=== PATIENT | male | born 1975 | race American Indian/Alaskan Native ===

== ENCOUNTER 2019-05-13 09:53 | Emergency (ER) | payer OTHER ==
[2019-05-13 10:09] VITALS: BP 172/111
--- NOTE | 2019-05-13 10:49 | Emergency Department Report ---
ED Rash HPI - HPI Chief Complaint: Allergic Reaction Stated Complaint: ALLERGIC REACTION/RT HAND Time Seen by Provider: 05/13/19 10:42 Duration: 1 week Location: Other (face upper torso upper extremities) Rash Symptoms: Yes Facial Swelling, Yes Peeling, Yes Blistering, No Itching, No Tongue/Oral Swelling, No Breathing Difficulties, No Choking Sensation, No Wheezing/Dyspnea, No Fever Severity: moderate Other History: Mr. Landis is a very pleasant 43-year-old male without significant past medical history for the past week has had a diffuse rash on the hands body face. 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 Outside clinic diagnosed with latex allergy. Cream completely resolved with the symptoms. However he still is working around latex. He now has recurrence of the facial rash. He has blistering and irritation. ED Review of Systems ROS: Stated complaint: ALLERGIC REACTION/RT HAND Other details as noted in HPI Constitutional: denies: fever ENT: denies: throat pain Respiratory: denies: shortness of breath Skin: rash, lesions ED Past Medical Hx - Past Medical History Previous Medical History?: No - Surgical History Past Surgical History?: No - Social History Smoking Status: Current Every Day Smoker Substance Use Type: None - Medications Home Medications: Home Medications Medication Instructions Recorded Confirmed Last Taken Type Hydrocortisone 1% [Hydrocortisone 1 applicatio TP TID 7 Days #2 tube 05/13/19 Unknown Rx 1% CREAM] Prednisone [predniSONE 10 mg 10 mg PO .TAPER #1 tab.ds.pk 05/13/19 Unknown Rx (6-Day Pack, 21 Tabs)] Rash Exam - Exam General: Vital signs noted. No distress. Alert and acting appropriately. HEENT: Yes Periorbital Edema, No Conjuctival Injection, No Chemosis, No Perioral Edema, No Tongue Edema, No Uvular Edema, No Compromised Airway, No Drooling Lungs: No Labored Respirations, No Retractions, No Use of Accessory Muscles Skin: Yes Excoriations, Yes Weeping, Yes Tenderness, Yes Erythema, No Other (face: left upper eyelid edema blisters redness, right hand: redness with blisters) ED Course Vital Signs 05/13/19 10:07 Temperature 98.2 F Pulse Rate 85 Respiratory 20 Rate Blood Pressure 172/111 O2 Sat by Pulse 100 Oximetry ED Medical Decision Making - Medical Decision Making Clinical impression contact allergic dermatitis: Prescribe prednisone and hydrocortisone cream Critical care attestation.: If time is entered above; I have spent that time in minutes in the direct care of this critically ill patient, excluding procedure time. ED Disposition Clinical Impression: Allergic contact dermatitis Disposition: TO HOME OR SELFCARE Is pt being admited?: No Does the pt Need Aspirin: No Condition: Stable Instructions: Contact Dermatitis (ED) Prescriptions: Hydrocortisone 1% [Hydrocortisone 1% CREAM] 1 applicatio TP TID 7 Days #2 tube Prednisone [predniSONE 10 mg (6-Day Pack, 21 Tabs)] 10 mg PO .TAPER #1 tab.ds.pk Referrals: NATALEE CERRATO MD [Staff Physician] - 3-5 Days Forms: Work/School Release Form(ED)
== END 2019-05-13 10:59 | disposition home or self-care (01) ==
LOC: ED 09:53
DX: L23.9 Allergic contact dermatitis, unspecified cause (principal); F17.200 Nicotine dependence, unspecified, uncomplicated
CPT/HCPCS: 99282

== ENCOUNTER 2021-07-08 19:24 | Inpatient (IN) | payer OTHER ==
[2021-07-08] MEDS ORDERED: CLOPIDOGREL 300 MG TAB PO ONE (19:40)
[2021-07-08] MEDS ORDERED: HEPARIN 10,000 UNITS/10 ML VIAL IV ONE (19:41)
[2021-07-08] MEDS ORDERED: NITROGLYCERIN DRIP 50 MG/250 ML BOTTLE IV ONE (19:42)
--- NOTE | 2021-07-08 19:49 | Emergency Department Report ---
HPI - General Time Seen by Provider: 07/08/21 19:40 ED Past Medical Hx - Social History Smoking Status: Current Every Day Smoker Substance Use Type: None - Medications Home Medications: Home Medications Medication Instructions Recorded Confirmed Last Taken Type Hydrocortisone 1% [Hydrocortisone 1 applicatio TP TID 7 Days #2 tube 05/13/19 Unknown Rx 1% CREAM] Prednisone [predniSONE 10 mg 10 mg PO .TAPER #1 tab.ds.pk 05/13/19 Unknown Rx (6-Day Pack, 21 Tabs)] ED Review of Systems ROS: Stated complaint: CHEST PAIN Other details as noted in HPI ED Course - Reevaluation(s) Reevaluation #1: 07/08/21 19:44 EKG immediately upon arrival.at 1928 interpreted at 1928 showed a rate of 96, normal. The rhythm is sinus rhythm, normal. There is an intraventricular conduction delay that looks almost like an incomplete right bundle branch block there is also ST segment elevation in leads I and aVL consistent with acute lateral CT there is also ST segment elevation in V5 V6. Bilateral Upper extremity BP's are similar. I spoke with who requested we give the patient 600 mg of Plavix as well as 5000 of heparin and he will take him to the [facility] immediately. I spoke to Dr. Shah who will be the hospitalist admitting the patient. I am also beginning a nitroglycerin drip since the patient is in severe pain. Critical care attestation.: If time is entered above; I have spent that time in minutes in the direct care of this critically ill patient, excluding procedure time. ED Disposition Clinical Impression: Acute lateral myocardial infarction Disposition: 02 [facility] Is pt being admited?: Yes Does the pt Need Aspirin: Yes Condition: Critical
[2021-07-08] MEDS ORDERED: ASPIRIN 81 MG TAB CHEW PO ONE (19:50)
[2021-07-08 19:59] LABS: Basophils % (Auto) 0.3 % (0.0-1.8); Hematocrit 50.7 % (35.5-45.6); Hemoglobin 16.8 gm/dl (11.8-15.2); Lymphocytes # (Auto) 3.2 K/mm3 (1.2-5.4); Lymphocytes % (Auto) 35.5 % (13.4-35.0); Mean Corpuscular HGB Conc 33 % (32-34); Mean Corpuscular Volume 90 fl (84-94); Monocytes # (Auto) 1.1 K/mm3 (0.0-0.8); Monocytes % (Auto) 12.1 % (0.0-7.3); Platelet Count 291 K/mm3 (140-440); Red Blood Count 5.65 M/mm3 (3.65-5.03); Red Cell Distribution Width 13.1 % (13.2-15.2)
[2021-07-08] MEDS ORDERED: ACETAMINOPHEN 325 MG TAB PO PRN (20:00)
[2021-07-08] MEDS ORDERED: oxyCODONE /ACETAMINOPHEN 5-325MG TAB PO PRN (20:00)
[2021-07-08] MEDS ORDERED: MORPHINE 4 MG/1 ML INJ IV PRN (20:00)
[2021-07-08] MEDS ORDERED: MORPHINE 4 MG/1 ML INJ IV ONE (20:01)
[2021-07-08] MEDS ORDERED: ONDANSETRON 4 MG/2 ML INJ IV ONE (20:01)
[2021-07-08] MEDS ORDERED: MORPHINE 4 MG/1 ML INJ ONE (20:02)
--- NOTE | 2021-07-08 20:03 | History and Physical Report ---
History of Present Illness Chief complaint: I am having chest pain History of present illness: 45 YO Male with Obesity, Nicotine Dependence presents to ED for evaluation. Patient reports "I am having chest pain". Patient states that he has experienced a sudden onset of pain in his chest today with persistent and wor sening symptoms over the same timeframe. Patient states that pain is 7/10, constant, substernal, nonradiating, worsened with exertion, relieved with rest, associated with diaphoresis, associated with shortness of breath. Patient transported [facility] via private vehicle for further care and evaluation of the aforementioned symptoms. The patient was seen and evaluated in the emergency department. All lab and imaging studies reviewed. EKG revealed evidence of STEMI, as well as clinical symptoms consistent with unstable angina, as well as diastolic CHF. Patient initiated on heparin drip, as well as antiplatelet therapy. Cardiology team consulted in ED and patient taken urgently to the Director [employer] [facility] for intervention. Patient admitted to ICU and initiated on STEMI protocol. Patient chest pain but denies fever, chills, productive cough, skin rash, recent contact, known exposure to COVID-19. No prior admission for review. No medication listed at time of admission for reconciliation. Advanced care planning conducted in ED. Past History Past Medical History: other (See HPI) Past Surgical History: No surgical history, Other (Reviewed) Social history: single, smoking. denies: alcohol abuse Family history: diabetes ([facility]), hypertension Medications and Allergies Allergies Allergy/AdvReac Type Severity Reaction Status Date / Time No Known Allergies Allergy Unverified 07/08/21 19:46 Home Medications Medication Instructions Recorded Confirmed Last Taken Type Hydrocortisone 1% [Hydrocortisone 1 applicatio TP TID 7 Days #2 tube 05/13/19 Unknown Rx 1% CREAM] Prednisone [predniSONE 10 mg 10 mg PO .TAPER #1 tab.ds.pk 05/13/19 Unknown Rx (6-Day Pack, 21 Tabs)] Active Meds: Active Medications Acetaminophen (Acetaminophen 325 Mg Tab) 650 mg PO Q6H PRN PRN Reason: Pain MILD(1-3)/Fever >100.5/LI Nitroglycerin/Dextrose (Tridil Drip 50mg/250ml) 50 mg in 250 mls @ 3 mls/hr IV TITR ONE; Protocol Stop: 07/12/21 07:01 Last Admin: 07/08/21 20:00 Dose: 10 mcg/min, 3 mls/hr Morphine Sulfate (Morphine 4 Mg/1 Ml Inj) 2 mg IV Q8H PRN PRN Reason: Pain , Severe (7-10) Oxycodone/Acetaminophen (Oxycodone /Acetaminophen 5-325mg Tab) 1 tab PO Q6H PRN PRN Reason: Pain, Moderate (4-6) Sodium Chloride (Sodium Chloride 0.9% 10 Ml Flush Syringe) 10 ml IV BID BELEM Sodium Chloride (Sodium Chloride 0.9% 10 Ml Flush Syringe) 10 ml IV PRN PRN PRN Reason: LINE FLUSH Review of Systems Constitutional: no weight loss, no weight gain, no fever, no chills Ears, nose, mouth and throat: no ear pain, no ear discharge, no decreased hearing, no nasal congestion, no nasal discharge Cardiovascular: chest pain, no orthopnea, no lightheadedness Respiratory: no cough, no cough with sputum, no hemoptysis, no shortness of breath Gastrointestinal: no abdominal pain, no nausea, no diarrhea, no constipation, no change in bowel habits Genitourinary Male: no hematuria, no flank pain, no discharge, no urinary frequency, no urinary hesitancy, no nocturia Rectal: no pain, no incontinence, no bleeding Musculoskeletal: no neck stiffness, no shooting arm pain, no arm numbness/tingling, no shooting leg pain Integumentary: no rash, no redness, no sores, no wounds, no jaundice Neurological: no transient paralysis, no paralysis, no weakness, no numbness, no seizures, no tremors Psychiatric: no anxiety, no change in sleep habits, no insomnia, no hypersomnia, no suicidal ideation, no hallucinations Endocrine: no excessive thirst, no polyuria, no nocturia Hematologic/Lymphatic: no easy bruising, no easy bleeding Allergic/Immunologic: no urticaria, no allergic rhinitis Exam - Constitutional Vitals: Temp Pulse Resp BP Pulse Ox 98.9 F 105 H 19 151/110 100 07/08/21 19:30 07/08/21 19:45 07/08/21 19:45 07/08/21 19:45 07/08/21 19:45 General appearance: Present: severe distress, obese - EENT Eyes: Present: PERRL ENT: hearing intact, clear oral mucosa - Neck Neck: Present: supple, normal ROM - Respiratory Respiratory: bilateral: CTA - Cardiovascular Heart Sounds: Present: S1 & S2. Absent: rub, click - Extremities Extremities: pulses symmetrical, No edema Peripheral Pulses: within normal limits - Abdominal General gastrointestinal: Present: soft, non-tender, non-distended, normal bowel sounds Male genitourinary: Present: normal - Integumentary Integumentary: Present: clear, dry - Musculoskeletal Musculoskeletal: generalized weakness - Psychiatric Psychiatric: appropriate mood/affect, intact judgment & insight, cooperative, agitated - Neurologic Neurologic: CNII-XII intact, moves all extremities Results - Labs CBC & Chem 7: 07/08/21 19:47 07/08/21 19:47 Labs: Abnormal lab results 07/08/21 Range/Units 19:47 RBC 5.65 H (3.65-5.03) M/mm3 Hgb 16.8 H (11.8-15.2) gm/dl Hct 50.7 H (35.5-45.6) % RDW 13.1 L (13.2-15.2) % Lymph % (Auto) 35.5 H (13.4-35.0) % [place] % (Auto) 12.1 H (0.0-7.3) % [place] # (Auto) 1.1 H (0.0-0.8) K/mm3 Assessment and Plan - Patient Problems (1) STEMI (ST elevation myocardial infarction) Current Visit: Yes Status: Acute Plan to address problem: ACS protocol: Serial cardiac enzymes, EKG, therapeutic anticoagulation as per cardiology team. Patient taken urgently to cardiac Director [employer] for surgical intervention, The high probability of a clinically significant, sudden or life threatening det erioration of the [cardiac, pulmonary, renal] system(s) required my full and direct attention, intervention and personal management. The aggregate critical care time was [65] minutes. This time is in addition to time spent performing reported procedures but includes the following: [x] Data Review and interpretation [x] Patient assessment and monitoring of vital signs [x] Documentation [x] Medication orders and management (2) Obesity (BMI 35.0-39.9 without comorbidity) Current Visit: Yes Status: Acute Plan to address problem: Balanced diet, increase physical activity discharge, outpatient pulmonary follow-up for sleep study. (3) Unstable angina Current Visit: Yes Status: Acute Plan to address problem: ACS protocol: Serial cardiac enzymes, EKG, telemetry monitoring, therapeutic anticoagulation administered in the emergency department. Antiplatelet therapy administered in the emergency department. (4) DVT prophylaxis Current Visit: Yes Status: Acute Plan to address problem: SCD bilateral lower extremities while in bed (5) Advance care planning Current Visit: Yes Status: Acute Plan to address problem: Disease education conducted, care plan discussed, diagnoses discussed, prognosis discussed, patient is full code. Patient acknowledges understanding and agreement with care plan, +30 minutes.
[2021-07-08 20:12] LABS: Alanine Aminotransferase 35 units/L (7-56); Albumin 4.6 g/dL (3.9-5); BUN/Creatinine Ratio 9; Blood Urea Nitrogen 8 mg/dL (9-20); Calcium 10.2 mg/dL (8.4-10.2); Hemolysis Index 24
[2021-07-08] MEDS ORDERED: MIDAZOLAM 2 MG/2 ML INJ ONE (20:13)
[2021-07-08] MEDS ORDERED: NITROGLYCERIN SYRINGE 3 ML ONE (20:13)
[2021-07-08] MEDS ORDERED: VERAPAMIL 5 MG/2 ML INJ ONE (20:13)
[2021-07-08] MEDS ORDERED: LIDOCAINE (2%) 20 MG/1 ML VIAL 50 ML MDV INFILTRATI ONE (20:13)
[2021-07-08] MEDS ORDERED: HEPARIN/NS 5000 UNIT/500ML 1,000 ML IR ONE (20:13)
[2021-07-08] MEDS ORDERED: fentaNYL 100 MCG/2 ML INJ ONE (20:13)
[2021-07-08] MEDS ORDERED: SODIUM CHLORIDE 0.9% 1000 ML 1,000 ML ONE (20:14)
--- NOTE | 2021-07-08 20:23 | XRay Report ---
CHEST 1 VIEW 07/08/2021 7:46 PM INDICATION / CLINICAL INFORMATION: Chest Pain. COMPARISON: None available. FINDINGS: SUPPORT DEVICES: None. HEART / MEDIASTINUM: No significant abnormality. LUNGS / PLEURA: No significant pulmonary or pleural abnormality. No pneumothorax. ADDITIONAL FINDINGS: No significant additional findings. IMPRESSION: 1. No acute findings. Signer Name: Saul Orantes MD Signed: 07/08/2021 8:19 PM Workstation Name: [id number]
[2021-07-08] MEDS: HEPARIN 10,000 UNITS/10 ML VIAL ONE ×3 (20:31→20:45)
[2021-07-08] MEDS ORDERED: METOPROLOL TARTRATE 5 MG/5 ML INJ IV ONE (20:36)
[2021-07-08] MEDS ORDERED: HEPARIN/NS 5000 UNIT/500ML 500 ML IR ONE (20:47)
[2021-07-08] MEDS ORDERED: TIROFIBAN/NS 12,500 MCG/250 ML BAG IV ONE (20:50)
[2021-07-08] MEDS ORDERED: SODIUM CHLORIDE 0.9% 1000 ML 1,000 ML IV SCH (21:30)
--- NOTE | 2021-07-08 21:32 | Consultation ---
History of Present Illness Consult date: 07/08/21 Requesting physician: NAHUN BEAVERS Consult reason: chest pain History of present illness: 45-year-old male with morbid obesity chronic back pain smoker history of hypertension hyperlipidemia not on medications. Having chest pain since 3 PM. Thought it was gas. Was midsternal with nausea and vomiting. Radiating to the arm and jaw. 10 out of 10 chest pain. Walked to the emergency room found on EKG to have lateral wall myocardial infarction. Patient was taken emergently to the [facility] Techn[facility] found left main patent LAD patent circumflex patent ramus on a percent RCA patent moderate LV dysfunction with elevated left end-diastolic pressure. Patient has successful PCI of the ramus with a drug-eluting resolute 3.0 x 18 mm postdilated 3 5 x 12. Patient is chest pain-free. Patient denies any fever or chills. Syncope palpitations or melena. Past History Past Medical History: hypertension, hyperlipidemia, other (See HPI) Past Surgical History: No surgical history, Other (Reviewed) Social history: single, smoking. denies: alcohol abuse [facility]: [facility] Medications and Allergies Allergies Allergy/AdvReac Type Severity Reaction Status Date / Time No Known Allergies Allergy Unverified 07/08/21 19:46 Home Medications Medication Instructions Recorded Confirmed Last Taken Type Hydrocortisone 1% [Hydrocortisone 1 applicatio TP TID 7 Days #2 tube 05/13/19 Unknown Rx 1% CREAM] Prednisone [predniSONE 10 mg 10 mg PO .TAPER #1 tab.ds.pk 05/13/19 Unknown Rx (6-Day Pack, 21 Tabs)] Active Meds: Active Medications Acetaminophen (Acetaminophen 325 Mg Tab) 650 mg PO Q6H PRN PRN Reason: Pain MILD(1-3)/Fever >100.5/LI Aspirin (Aspirin 81 Mg Tab Chew) 81 mg PO QDAY BELEM Atorvastatin Calcium (Atorvastatin 40 Mg Tab) 80 mg PO QHS BELEM Clopidogrel Bisulfate (Clopidogrel 75 Mg Tab) 75 mg PO QDAY BELEM Nitroglycerin/Dextrose (Tridil Drip 50mg/250ml) 50 mg in 250 mls @ 3 mls/hr IV TITR ONE; Protocol Stop: 07/12/21 07:01 Last Admin: 07/08/21 20:00 Dose: 10 mcg/min, 3 mls/hr Sodium Chloride (Nacl 0.9% 1000 Ml) 1,000 mls @ 75 mls/hr IV DIRECT BELEM Stop: 07/09/21 05:29 Losartan Potassium (Losartan 25 Mg Tab) 25 mg PO QDAY BELEM Metoprolol Tartrate (Metoprolol Tartrate 50 Mg Tab) 25 mg PO BID BELEM Morphine Sulfate (Morphine 4 Mg/1 Ml Inj) 2 mg IV Q8H PRN PRN Reason: Pain , Severe (7-10) Oxycodone/Acetaminophen (Oxycodone /Acetaminophen 5-325mg Tab) 1 tab PO Q6H PRN PRN Reason: Pain, Moderate (4-6) Sodium Chloride (Sodium Chloride 0.9% 10 Ml Flush Syringe) 10 ml IV BID BELEM Sodium Chloride (Sodium Chloride 0.9% 10 Ml Flush Syringe) 10 ml IV PRN PRN PRN Reason: LINE FLUSH Review of Systems All systems: negative (As per the HPI) Physical Examination Vital Signs Temp Pulse Resp BP Pulse Ox 98.9 F 112 H 26 H 160/110 100 07/08/21 19:30 07/08/21 19:30 07/08/21 19:30 07/08/21 19:30 07/08/21 19:30 General appearance: no acute distress, well-nourished HEENT: Positive: PERRL, Mucus Membranes Moist Neck: Positive: neck supple, trachea midline Cardiac: Positive: Reg Rate and Rhythm, S1/S2, S4. Negative: Audible Murmur Lungs: Positive: clear to auscultation, Normal Breath Sounds Neuro: Positive: Grossly Intact Abdomen: Positive: Soft, Active Bowel Sounds. Negative: Tender, Distended Male genitourinary: Positive: normal Skin: Positive: Clear Incision: Cardiac Cath Site (No hematomas) Musculoskeletal: No Pain, Normal Range of Motion Extremities: Present: normal. Absent: edema Results 07/08/21 19:47 07/08/21 19:47 Cardiac Enzymes 07/08/21 Range/Units 19:47 AST 29 (5-40) units/L CBC 07/08/21 Range/Units 19:47 WBC 9.1 (4.5-11.0) K/mm3 RBC 5.65 H (3.65-5.03) M/mm3 Hgb 16.8 H (11.8-15.2) gm/dl Hct 50.7 H (35.5-45.6) % Plt Count 291 (140-440) K/mm3 Lymph # (Auto) 3.2 (1.2-5.4) K/mm3 [place] # (Auto) 1.1 H (0.0-0.8) K/mm3 Eos # (Auto) 0.0 (0.0-0.4) K/mm3 Baso # (Auto) 0.0 (0.0-0.1) K/mm3 Comprehensive Metabolic Panel 07/08/21 Range/Units 19:47 Sodium 136 L (137-145) mmol/L Potassium 3.5 L (3.6-5.0) mmol/L Chloride 95.9 L (98-107) mmol/L Carbon Dioxide 16 L (22-30) mmol/L BUN 8 L (9-20) mg/dL Creatinine 0.9 (0.8-1.3) mg/dL Glucose 368 H (75-100) mg/dL Calcium 10.2 (8.4-10.2) mg/dL AST 29 (5-40) units/L ALT 35 (7-56) units/L Alkaline Phosphatase 84 (35-129) units/L Total Protein 7.8 (6.3-8.2) g/dL Albumin 4.6 (3.9-5) g/dL - Imaging and Cardiology Cardiac cath: report reviewed (left main patent LAD patent circumflex patent ramus on a percent RCA patent moderate LV dysfunction with elevated left end- diastolic pressure. Patient has successful PCI of the ramus with a drug-eluting resolute 3.0 x 18 mm postdilated 3 5 x 12) EKG interpretations - Telemetry EKG Rhythm: Sinus Rhythm (Normal sinus rhythm acute lateral wall PA) Assessment and Plan 44-year-old male with morbid obesity hypertension hyperlipidemia noncompliant. Had an acute lateral wall PA with successful PCI of the ramus. Patient acute diastolic function and moderate LV dysfunction. Will start patient on aspirin Plavix patient was loaded with 600 mg. Post PCI care DC right femoral sheath when ACT less than 150. Start Lopressor losartan high-dose statin. Discussed about smoking cessation. Patient be transferred to the critical care unit Spent over 31 minutes of critical care time - Patient Problems (1) Acute diastolic (congestive) heart failure Current Visit: Yes Status: Acute (2) Hyperlipemia, mixed Current Visit: Yes Status: Chronic (3) Hypertension Current Visit: Yes Status: Chronic Qualifiers: Hypertension type: primary hypertension Qualified Code(s): I10 - Essential (primary) hypertension (4) Cardiomyopathy Current Visit: Yes Status: Acute Qualifiers: Cardiomyopathy type: ischemic Qualified Code(s): I25.5 - Ischemic cardiomyopathy (5) Obesity (BMI 35.0-39.9 without comorbidity) Current Visit: Yes Status: Chronic (6) STEMI (ST elevation myocardial infarction) Current Visit: Yes Status: Acute Qualifiers: Involved coronary artery: left circumflex coronary artery Qualified Code(s): I21.21 - ST elevation (STEMI) myocardial infarction involving left circumflex coronary artery (7) Acute lateral myocardial infarction Current Visit: No Status: Acute
[2021-07-08] MEDS: METOPROLOL TARTRATE 50 MG TAB PO SCH (22:23)
[2021-07-09] MEDS: MORPHINE 4 MG/1 ML INJ IV PRN ×3 (01:16→09:57)
[2021-07-09 04:17] LABS: Chol/HDL Ratio 6.32 %
[2021-07-09 05:21] LABS: Basophils % (Auto) 0.1 % (0.0-1.8); Hematocrit 50.8 % (35.5-45.6); Hemoglobin 16.7 gm/dl (11.8-15.2); Lymphocytes # (Auto) 1.1 K/mm3 (1.2-5.4); Lymphocytes % (Auto) 9.9 % (13.4-35.0); Mean Corpuscular HGB Conc 33 % (32-34); Mean Corpuscular Volume 92 fl (84-94); Monocytes # (Auto) 0.5 K/mm3 (0.0-0.8); Platelet Count 277 K/mm3 (140-440); Red Blood Count 5.54 M/mm3 (3.65-5.03); Red Cell Distribution Width 13.3 % (13.2-15.2)
[2021-07-09 05:56] LABS: BUN/Creatinine Ratio TNR; Blood Urea Nitrogen TNR mg/dL (9-20); Calcium TNR mg/dL (8.4-10.2); Hemolysis Index TNR
--- NOTE | 2021-07-09 07:52 | Consultation ---
History of Present Illness Consult date: 07/09/21 Requesting physician: MALI ERICKSON Reason for consult: other (Post cath, ICU care) History of present illness: 45-year-old male with morbid obesity chronic back pain smoker history of hypertension hyperlipidemia not on medications, with chest pain- STEMI, lateral wall infarction . Patient was taken emergently to the [facility] found left main patent LAD patent circumflex patent ramus on a percent RCA patent moderate LV dysfunction with elevated left end-diastolic pressure. Patient has successful PCI of the ramus with a drug-eluting resolute 3.0 x 18 mm postdilated 3 5 x 12. Admitted to the ICU for monitoring post procedure. Critical care consult placed to facilitate monitoring and admission to the unit. Past History Past Medical History: hypertension, hyperlipidemia, other (See HPI) Past Surgical History: No surgical history, Other (Reviewed) Social history: single, smoking. denies: alcohol abuse Family history: diabetes (Welcome back), hypertension Medications and Allergies Allergies Allergy/AdvReac Type Severity Reaction Status Date / Time No Known Allergies Allergy Verified 07/09/21 05:11 Home Medications Medication Instructions Recorded Confirmed Last Taken Type No Known Home Medications [No 07/08/21 07/08/21 Unknown History Reported Home Medications] Active Meds: Active Medications Acetaminophen (Acetaminophen 325 Mg Tab) 650 mg PO Q6H PRN PRN Reason: Pain MILD(1-3)/Fever >100.5/LI Aspirin (Aspirin 81 Mg Tab Chew) 81 mg PO QDAY [facility] Atorvastatin Calcium (Atorvastatin 40 Mg Tab) 80 mg PO QHS [facility] Last Admin: 07/08/21 22:23 Dose: 80 mg Clopidogrel Bisulfate (Clopidogrel 75 Mg Tab) 75 mg PO QDAY [facility] Nitroglycerin/Dextrose (Tridil Drip 50mg/250ml) 50 mg in 250 mls @ 3 mls/hr IV TITR ONE; Protocol Stop: 07/12/21 07:01 Last Admin: 07/08/21 20:00 Dose: 10 mcg/min, 3 mls/hr Losartan Potassium (Losartan 25 Mg Tab) 25 mg PO QDAY [facility] Metoprolol Tartrate (Metoprolol Tartrate 50 Mg Tab) 25 mg PO BID [facility] Last Admin: 07/08/21 22:23 Dose: 25 mg Morphine Sulfate (Morphine 4 Mg/1 Ml Inj) 2 mg IV Q4H PRN PRN Reason: Pain , Severe (7-10) Last Admin: 07/09/21 05:29 Dose: 2 mg Oxycodone/Acetaminophen (Oxycodone /Acetaminophen 5-325mg Tab) 1 tab PO Q6H PRN PRN Reason: Pain, Moderate (4-6) Last Admin: 07/08/21 22:23 Dose: 1 tab Sodium Chloride (Sodium Chloride 0.9% 10 Ml Flush Syringe) 10 ml IV BID BELEM Last Admin: 07/09/21 05:01 Dose: Not Given Sodium Chloride (Sodium Chloride 0.9% 10 Ml Flush Syringe) 10 ml IV PRN PRN PRN Reason: LINE FLUSH Review of Systems Constitutional: no weight loss, no weight gain, no fever, no chills, no sweats Cardiovascular: no chest pain, no orthopnea, no palpitations, no edema, no lightheadedness, no shortness of breath Respiratory: no cough, no cough with sputum, no excessive sputum, no hemoptysis, no shortness of breath, no dyspnea on exertion Gastrointestinal: no abdominal pain, no nausea, no vomiting, no diarrhea, no constipation Genitourinary Male: no dysuria, no hematuria, no flank pain, no nocturia Neurological: no head injury, no paralysis, no weakness, no parathesias, no seizures, no syncope Psychiatric: no anxiety, no memory loss, no change in sleep habits, no insomnia, no hypersomnia Physical Examination Vital signs: Vital Signs Temp Pulse Resp BP Pulse Ox 98.9 F 112 H 26 H 160/110 100 07/08/21 19:30 07/08/21 19:30 07/08/21 19:30 07/08/21 19:30 07/08/21 19:30 General appearance: no acute distress, alert, other (Obese) Eyes: non-icteric ENT: oropharynx moist, other (large neck) Neck: supple, no lymphadenopathy, no JVD Effort: normal Ascultation: Bilateral: clear, diminished breath sounds Cardiovascular: regular rate and rhythm, other (S1,S2) Gastrointestinal: normoactive bowel sounds, soft, non-tender Integumentary: normal, other (No groin hematoma) Extremities: no cyanosis, no edema, pulses normal, no ischemia or petechiae Musculoskeletal: no deformities Gait: normal gait normal mental status, non-focal exam, pupils equal and round, motor strength normal and mood appropriate, affect normal Results - Laboratory Findings CBC and BMP: 07/09/21 04:11 07/09/21 10:17 Abnormal lab findings: Abnormal Labs 07/08/21 07/08/21 07/09/21 19:47 19:47 00:00 RBC 5.65 H Hgb 16.8 H Hct 50.7 H RDW 13.1 L Lymph % (Auto) 35.5 H [place] % (Auto) 12.1 H Lymph # (Auto) [place] # (Auto) 1.1 H Seg Neutrophils % Seg Neutrophils # Sodium 136 L Potassium 3.5 L Chloride 95.9 L Carbon Dioxide 16 L BUN 8 L Glucose 368 H POC Glucose Troponin T 2.130 H* D Cholesterol 234 H LDL Cholesterol Direct 164 H HDL Cholesterol 37 L 07/09/21 07/09/21 04:11 05:42 RBC 5.54 H Hgb 16.7 H Hct 50.8 H RDW Lymph % (Auto) 9.9 L [place] % (Auto) Lymph # (Auto) 1.1 L [place] # (Auto) Seg Neutrophils % 85.0 H Seg Neutrophils # 9.1 H Sodium Potassium Chloride Carbon Dioxide BUN Glucose POC Glucose 318 H Troponin T Cholesterol LDL Cholesterol Direct HDL Cholesterol - Diagnostic Findings Chest x-ray: image reviewed (No acute pulmonary infiltrates, no cardiac disease) Assessment and Plan STEMI (ST elevation myocardial infarction) s/p pci with JOSE MIGUEL to [facility] Morbid obesity BMI 39.5 Tobacco use disorder/Nicotine dependence Unstable angina Diabetes mellitus Probable sleep apnea Hypertension Hyperlipidemia -Smoking cessation counselling, nicotine withdrawal precautions -Cardio-protective measures- anti-platelet therapy, beta blockers -Needs outpatient sleep study -weight loss and life style modifications -Blood pressure management -Glycemic control, target blood glucose <180mg/dL -Follow up echocardiogram report -The patient has erythrocytosis- possible nocturnal hypoxia secondary to sleep apnea, possible pulmonary HTN Can transfer telemetry
[2021-07-09] MEDS ORDERED: DEXTROSE 50% IN WATER (25GM) 50 ML SYRINGE IV PRN (09:00)
[2021-07-09] MEDS: METOPROLOL TARTRATE 50 MG TAB PO SCH ×3 (09:41→21:40)
[2021-07-09] MEDS: ASPIRIN 81 MG TAB CHEW PO SCH (09:41)
[2021-07-09] MEDS: LOSARTAN 25 MG TAB PO SCH (09:41)
[2021-07-09] MEDS: CLOPIDOGREL 75 MG TAB PO SCH (09:41)
[2021-07-09 11:37] LABS: BUN/Creatinine Ratio 11; Blood Urea Nitrogen 10 mg/dL (9-20); Calcium 9.2 mg/dL (8.4-10.2); Hemolysis Index 6
[2021-07-09] MEDS: INSULIN LISPRO 100 UNIT/ML SUB-Q SCH ×3 (11:57→21:25)
--- NOTE | 2021-07-09 13:04 | Progress Note ---
<SHIRA SHARP - Last Filed: 07/09/21 16:10> Assessment and Plan Assessment and plan: This is a 45-year-old male with past medical history of HTN, HLD, morbid obesity, chronic back pain, and nicotine dependence admitted for STEMI s/p PCI with JOSE MIGUEL to the [facility]. Hospital Course to Date: 07/09: Remains stable overnight, c/o of chest soreness which patient described as "soreness but not pain. Continue PRN analgesia for pain management. On GDMT therapy per Cardio. Severe hyperglycemia this am, HgbA1c is 13.9, SSI ACHS and basal insulin was initiated. Kayexalate was also administered for hyperkalemia. Continue to trend troponin and electrolytes. Okay to transfer patient to Telemetry per cardio. Assessment and Plan #STEMI (ST elevation myocardial infarction) #Diastolic CHF - Presented with 10/06, constant, substernal, nonradiating, worsened with exer tion, relieved with rest, associated with diaphoresis, associated with shortness of breath - Initial EKG to have lateral wall myocardial infarction - Cardiology on consult, appreciated recommendations - 07/08 s/p emergent cardiac cath- succesfull PCI with JOSE MIGUEL to the [facility] - 2D Echo pending - Troponin remains elevated this am, continue to trend per Cardio - On GDMT therapy per cardio - SCD bilateral lower extremities while in bed - Okay for transfer to Telemetry #Hyperglycemia - Hgb A1c 13.9 - per patient no prior history of DM - SSI ACH and lantus qHs initiated - Education and resources provided on DM - Nutrition also consulted for more DM education #Hyperkelemia #Hypernatremia - Unclear etiology, probably 2/2 to Stemi - Ca wnr, will check mag and phosp - X1 dose of kayexalate - Monitor Na for now since patient VSS and he appear euvolemic - 2D echo pending - Continue to trend BMP - Monitor and replace electrolytes as needed #Nicotine Dependence - Thorough education of smoking cessation, patient verbalized understanding of info given - Smocking cessation resources provided - Nicotine patch Qday #Hypertension #Hyperlipidemia - BP is stable - Continue statin and current antihypertensive regimen - Continue blood pressure monitor per protocol - Maintain SBP less than 160 #Obesity (BMI 35.0-39.9 without comorbidity) - Balanced diet, increase physical activity at discharge - Nutrition consulted - Outpatient pulmonary follow-up for sleep study. #GI/DVT Prophylaxis - PPI- Pepcid - SCD bilateral lower extremities while in bed #Advance Care Planning - Disease education conducted, care plan discussed, diagnoses discussed, prognosis discussed. Patient acknowledges understanding and agreement with care plan The high probability of a clinically significant, sudden or life threatening deterioration of the [multiple] system(s) required my full and direct attention, intervention and personal management. The aggregate critical care time was [60] minutes. This time is in addition to time spent performing reported procedures but includes the following: [x] Data Review and interpretation [x] Patient assessment and monitoring of vital signs [x] Documentation [x] Medication orders and management Disposition Plan: ICU Total Time Spent with Patient (Minutes): 60 History Interval history: Patient seen and examined at the bedside. Fully AAO, on RA, complaining of chest soreness this am, however, not painful as when he came in. Patient cath sites were noted with no s/s of any complications, VSS. Hospitalist Physical - Constitutional Vitals: Temp Pulse Resp BP Pulse Ox 98.2 F 94 H 28 H 138/98 95 07/09/21 08:00 07/09/21 11:59 07/09/21 11:20 07/09/21 11:59 07/09/21 11:20 General appearance: Present: no acute distress, well-nourished, obese - EENT Eyes: Present: PERRL, EOM intact ENT: hearing intact, clear oral mucosa - Neck Neck: Present: normal ROM - Respiratory Respiratory effort: normal Respiratory: bilateral: CTA - Cardiovascular Rhythm: regular Heart Sounds: Present: S1 & S2 - Extremities Extremities: no ischemia, pulses intact, pulses symmetrical Extremity abnormal: edema - Peripheral Assessment Generalized Edema Type: Non-pitting Edema Degree: 1+ Capillary Refill: < 3 seconds Skin Temperature: Warm Peripheral Pulses: within normal limits - Abdominal General gastrointestinal: soft, non-distended, normal bowel sounds - Integumentary Integumentary: Present: clear, warm, dry - Psychiatric Psychiatric: appropriate mood/affect, cooperative - Neurologic Neurologic: CNII-XII intact, moves all extremities - Allied Health Allied health notes reviewed: nursing HEART Score - HEART Score Troponin: Troponin T 3.850 ng/mL (0.00-0.029) H* D 07/09/21 10:17 Results - Labs CBC & Chem 7: 04/12/22 04:11 07/09/21 10:17 Labs: Laboratory Last Values WBC 10.8 K/mm3 (4.5-11.0) 07/09/21 04:11 RBC 5.54 M/mm3 (3.65-5.03) H 07/09/21 04:11 Hgb 16.7 gm/dl (11.8-15.2) H 07/09/21 04:11 Hct 50.8 % (35.5-45.6) H 07/09/21 04:11 MCV 92 fl (84-94) 07/09/21 04:11 MCH 30 pg (28-32) 07/09/21 04:11 MCHC 33 % (32-34) 07/09/21 04:11 RDW 13.3 % (13.2-15.2) 07/09/21 04:11 Plt Count 277 K/mm3 (140-440) 07/09/21 04:11 Lymph % (Auto) 9.9 % (13.4-35.0) L 07/09/21 04:11 [place] % (Auto) 5.0 % (0.0-7.3) 07/09/21 04:11 Eos % (Auto) 0.0 % (0.0-4.3) 07/09/21 04:11 Baso % (Auto) 0.1 % (0.0-1.8) 07/09/21 04:11 Lymph # (Auto) 1.1 K/mm3 (1.2-5.4) L 07/09/21 04:11 [place] # (Auto) 0.5 K/mm3 (0.0-0.8) 07/09/21 04:11 Eos # (Auto) 0.0 K/mm3 (0.0-0.4) 07/09/21 04:11 Baso # (Auto) 0.0 K/mm3 (0.0-0.1) 07/09/21 04:11 Seg Neutrophils % 85.0 % (40.0-70.0) H 07/09/21 04:11 Seg Neutrophils # 9.1 K/mm3 (1.8-7.7) H 07/09/21 04:11 Sodium 131 mmol/L (137-145) L 07/09/21 10:17 Potassium 5.2 mmol/L (3.6-5.0) H D 07/09/21 10:17 Chloride 93.0 mmol/L (98-107) L 07/09/21 10:17 Carbon Dioxide 16 mmol/L (22-30) L 07/09/21 10:17 Anion Gap 27 mmol/L 07/09/21 10:17 BUN 10 mg/dL (9-20) 07/09/21 10:17 Creatinine 0.9 mg/dL (0.8-1.3) 07/09/21 10:17 Estimated GFR > 60 ml/min 07/09/21 10:17 BUN/Creatinine Ratio 11 % 07/09/21 10:17 Glucose 329 mg/dL (75-100) H 07/09/21 10:17 POC Glucose 277 mg/dL (70-105) H 07/09/21 11:03 Hemoglobin A1c 13.9 % (4-6) H 07/09/21 10:17 Calcium 9.2 mg/dL (8.4-10.2) 07/09/21 10:17 Total Bilirubin 0.40 mg/dL (0.1-1.2) 07/08/21 19:47 AST 29 units/L (5-40) 07/08/21 19:47 ALT 35 units/L (7-56) 07/08/21 19:47 Alkaline Phosphatase 84 units/L (35-129) 07/08/21 19:47 Troponin T 3.850 ng/mL (0.00-0.029) H* D 07/09/21 10:17 NT-Pro-B Natriuret Pep 10.00 pg/mL (0-450) 07/08/21 19:47 Total Protein 7.8 g/dL (6.3-8.2) 07/08/21 19:47 Albumin 4.6 g/dL (3.9-5) 07/08/21 19:47 Albumin/Globulin Ratio 1.4 % 07/08/21 19:47 Triglycerides 117 mg/dL (2-149) 07/09/21 00:00 Cholesterol 234 mg/dL (50-199) H 07/09/21 00:00 LDL Cholesterol Direct 164 mg/dL (50-130) H 07/09/21 00:00 HDL Cholesterol 37 mg/dL (40-59) L 07/09/21 00:00 Cholesterol/HDL Ratio 6.32 % 07/09/21 00:00 Swanson/IV: Voiding Method Urinal Active Medications - Current Medications Current Medications: Generic Name Dose Route Start Last Admin Trade Name Freq PRN Reason Stop Dose Admin Acetaminophen 650 mg 07/08/21 20:00 Acetaminophen 325 Mg Tab PO Q6H PRN Pain MILD(1-3)/Fever >100.5/LI Aspirin 81 mg 07/09/21 10:00 07/09/21 09:41 Aspirin 81 Mg Tab Chew PO 81 mg QDAY BELEM Administration Atorvastatin Calcium 80 mg 07/08/21 22:00 07/08/21 22:23 Atorvastatin 40 Mg Tab PO 80 mg QHS [facility] Administration Clopidogrel Bisulfate 75 mg 07/09/21 10:00 07/09/21 09:41 Clopidogrel 75 Mg Tab PO 75 mg QDAY BELEM Administration Dextrose 50 ml 07/09/21 09:00 Dextrose 50% In Water (25gm) 50 Ml Syringe IV Q30MIN PRN Hypoglycemia Protocol Famotidine 20 mg 07/09/21 13:00 Famotidine 20 Mg Tab PO QDAY [facility] Nitroglycerin/Dextrose 50 mg in 250 mls @ 3 mls/hr 07/08/21 19:42 07/08/21 20:00 Tridil Drip 50mg/250ml IV 07/12/21 07:01 10 mcg/min TITR ONE 3 mls/hr Administration Protocol 10 MCG/MIN Insulin Glargine 15 units 07/09/21 22:00 Insulin Glargine 100 Units/Ml SUB-Q QHS [facility] Insulin Human Lispro 0 unit 07/09/21 11:30 07/09/21 11:57 Insulin Lispro 100 Unit/Ml SUB-Q 4 unit ACHS BELEM Administration Protocol Losartan Potassium 25 mg 07/09/21 10:00 07/09/21 09:41 Losartan 25 Mg Tab PO 25 mg QDAY [facility] Administration Metoprolol Tartrate 50 mg 07/09/21 12:00 07/09/21 11:59 Metoprolol Tartrate 50 Mg Tab PO 50 mg BID BELEM Administration Morphine Sulfate 2 mg 07/09/21 01:07 07/09/21 09:57 Morphine 4 Mg/1 Ml Inj IV 2 mg Q4H PRN Administration Pain , Severe (7-10) Oxycodone/Acetaminophen 1 tab 07/08/21 20:00 07/08/21 22:23 Oxycodone /Acetaminophen 5-325mg Tab PO 1 tab Q6H PRN Administration Pain, Moderate (4-6) Sodium Chloride 10 ml 07/08/21 22:00 07/09/21 09:42 Sodium Chloride 0.9% 10 Ml Flush Syringe IV 10 ml BID BELEM Administration Sodium Chloride 10 ml 07/08/21 20:00 Sodium Chloride 0.9% 10 Ml Flush Syringe IV PRN PRN LINE FLUSH Sodium Polystyrene Sulfonate 15 gm 07/09/21 12:38 Sodium Polystyrene 15 Gm/60 Ml Oral Liqd PO 07/09/21 12:39 ONCE ONE <SAMY JOSUE - Last Filed: 07/10/21 07:14> Assessment and Plan Assessment and plan: I saw and evaluated the patient. I agree with the findings and the plan of care as documented in the Nurse Practitioner's~note, with the following corrections and additions. Hospitalist Physical - Constitutional Vitals: Temp Pulse Resp BP Pulse Ox 98.8 F 102 H 18 99/63 97 07/10/21 03:52 07/10/21 03:52 07/10/21 03:52 07/10/21 03:52 07/10/21 03:52 HEART Score - HEART Score Troponin: Troponin T 2.280 ng/mL (0.00-0.029) H* D 07/09/21 23:52 Results - Labs CBC & Chem 7: 07/09/21 04:11 07/09/21 10:17 Labs: Laboratory Last Values WBC 10.8 K/mm3 (4.5-11.0) 07/09/21 04:11 RBC 5.54 M/mm3 (3.65-5.03) H 07/09/21 04:11 Hgb 16.7 gm/dl (11.8-15.2) H 07/09/21 04:11 Hct 50.8 % (35.5-45.6) H 07/09/21 04:11 MCV 92 fl (84-94) 07/09/21 04:11 MCH 30 pg (28-32) 07/09/21 04:11 MCHC 33 % (32-34) 07/09/21 04:11 RDW 13.3 % (13.2-15.2) 07/09/21 04:11 Plt Count 277 K/mm3 (140-440) 07/09/21 04:11 Lymph % (Auto) 9.9 % (13.4-35.0) L 07/09/21 04:11 [place] % (Auto) 5.0 % (0.0-7.3) 07/09/21 04:11 Eos % (Auto) 0.0 % (0.0-4.3) 07/09/21 04:11 Baso % (Auto) 0.1 % (0.0-1.8) 07/09/21 04:11 Lymph # (Auto) 1.1 K/mm3 (1.2-5.4) L 07/09/21 04:11 [place] # (Auto) 0.5 K/mm3 (0.0-0.8) 07/09/21 04:11 Eos # (Auto) 0.0 K/mm3 (0.0-0.4) 07/09/21 04:11 Baso # (Auto) 0.0 K/mm3 (0.0-0.1) 07/09/21 04:11 Seg Neutrophils % 85.0 % (40.0-70.0) H 07/09/21 04:11 Seg Neutrophils # 9.1 K/mm3 (1.8-7.7) H 07/09/21 04:11 Sodium 131 mmol/L (137-145) L 07/09/21 10:17 Potassium 5.2 mmol/L (3.6-5.0) H D 07/09/21 10:17 Chloride 93.0 mmol/L (98-107) L 07/09/21 10:17 Carbon Dioxide 16 mmol/L (22-30) L 07/09/21 10:17 Anion Gap 27 mmol/L 07/09/21 10:17 BUN 10 mg/dL (9-20) 07/09/21 10:17 Creatinine 0.9 mg/dL (0.8-1.3) 07/09/21 10:17 Estimated GFR > 60 ml/min 07/09/21 10:17 BUN/Creatinine Ratio 11 % 07/09/21 10:17 Glucose 329 mg/dL (75-100) H 07/09/21 10:17 POC Glucose 257 mg/dL (70-105) H 07/09/21 21:18 Hemoglobin A1c 13.9 % (4-6) H 07/09/21 10:17 Calcium 9.2 mg/dL (8.4-10.2) 07/09/21 10:17 Total Bilirubin 0.40 mg/dL (0.1-1.2) 07/08/21 19:47 AST 29 units/L (5-40) 07/08/21 19:47 ALT 35 units/L (7-56) 07/08/21 19:47 Alkaline Phosphatase 84 units/L (35-129) 07/08/21 19:47 Troponin T 2.280 ng/mL (0.00-0.029) H* D 07/09/21 23:52 NT-Pro-B Natriuret Pep 10.00 pg/mL (0-450) 07/08/21 19:47 Total Protein 7.8 g/dL (6.3-8.2) 07/08/21 19:47 Albumin 4.6 g/dL (3.9-5) 07/08/21 19:47 Albumin/Globulin Ratio 1.4 % 07/08/21 19:47 Triglycerides 117 mg/dL (2-149) 07/09/21 00:00 Cholesterol 234 mg/dL (50-199) H 07/09/21 00:00 LDL Cholesterol Direct 164 mg/dL (50-130) H 07/09/21 00:00 HDL Cholesterol 37 mg/dL (40-59) L 07/09/21 00:00 Cholesterol/HDL Ratio 6.32 % 07/09/21 00:00 Swanson/IV: Voiding Method Urinal Active Medications - Current Medications Current Medications: Generic Name Dose Route Start Last Admin Trade Name Freq PRN Reason Stop Dose Admin Acetaminophen 650 mg 07/08/21 20:00 Acetaminophen 325 Mg Tab PO Q6H PRN Pain MILD(1-3)/Fever >100.5/LI Aspirin 81 mg 07/09/21 10:00 07/09/21 09:41 Aspirin 81 Mg Tab Chew PO 81 mg QDAY BELEM Administration Atorvastatin Calcium 80 mg 07/08/21 22:00 07/09/21 21:24 Atorvastatin 40 Mg Tab PO 80 mg QHS BE[facility] Administration Clopidogrel Bisulfate 75 mg 07/09/21 10:00 07/09/21 09:41 Clopidogrel 75 Mg Tab PO 75 mg QDAY BELEM Administration Dextrose 50 ml 07/09/21 09:00 Dextrose 50% In Water (25gm) 50 Ml Syringe IV Q30MIN PRN Hypoglycemia Protocol Famotidine 20 mg 07/09/21 14:00 07/09/21 13:51 Famotidine 20 Mg Tab PO 20 mg QDAY BELEM Administration Nitroglycerin/Dextrose 50 mg in 250 mls @ 3 mls/hr 07/08/21 19:42 07/08/21 20:00 Tridil Drip 50mg/250ml IV 07/12/21 07:01 10 mcg/min TITR ONE 3 mls/hr Administration Protocol 10 MCG/MIN Insulin Glargine 15 units 07/09/21 22:00 07/09/21 21:24 Insulin Glargine 100 Units/Ml SUB-Q 15 units QHS [facility]LE[facility] Administration Insulin Human Lispro 0 unit 07/09/21 11:30 07/09/21 21:25 Insulin Lispro 100 Unit/Ml SUB-Q 6 unit ACHS BELEM Administration Protocol Losartan Potassium 25 mg 07/09/21 10:00 07/09/21 09:41 Losartan 25 Mg Tab PO 25 mg QDAY E[facility] Administration Metoprolol Tartrate 50 mg 07/09/21 12:00 07/09/21 21:40 Metoprolol Tartrate 50 Mg Tab PO 50 mg BID BELEM Administration Morphine Sulfate 2 mg 07/09/21 01:07 07/09/21 09:57 Morphine 4 Mg/1 Ml Inj IV 2 mg Q4H PRN Administration Pain , Severe (7-10) Nicotine 21 mg 07/09/21 17:00 07/09/21 16:28 Nicotine 21 Mg/24 Hr Patch TD Not Given QDAY BELEM Oxycodone/Acetaminophen 1 tab 07/08/21 20:00 07/08/21 22:23 Oxycodone /Acetaminophen 5-325mg Tab PO 1 tab Q6H PRN Administration Pain, Moderate (4-6) Sodium Chloride 10 ml 07/08/21 22:00 07/09/21 21:25 Sodium Chloride 0.9% 10 Ml Flush Syringe IV 10 ml BID BELEM Administration Sodium Chloride 10 ml 07/08/21 20:00 Sodium Chloride 0.9% 10 Ml Flush Syringe IV PRN PRN LINE FLUSH Nutrition/Malnutrition Assess - Dietary Evaluation Nutrition/Malnutrition Findings: Nutrition Notes Start: 07/09/21 15:54 Freq: Status: Active Protocol: Document 07/09/21 15:54 ORACIO (Rec: 07/09/21 16:05 ORACIO [id number]) Nutrition Notes Need for Assessment generated from: MD Order,Education Initial or Follow up Brief Note Other Pertinent Diagnosis Chest Pain, CHF, STEMI. Current Diet Cardiac Diet (since B 07/09). 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 Weight Status Obese Subjective/Other Information RD consult for nutrition education. No reports available on Pt's PO intake of meals at the time , will assess at F/U. Pt still in critical condition , not a candidate for Nutrition Education at the time, will assess feasibility on F/U. Percent of energy/protein needs met: Prescribed Cardiac Diet provides for energy/protein needs (2,230 Kcal/85 g) during LOS. Is patient on ventilator? No Is Patient Ambulatory and/or Out of Bed Yes REE-([place]-St. Jeor-ambulatory/OOB) [ 2663.050 [id number]] Kcal/Kg value to use for calculation 16 Approximate Energy Requirements Using 1886 kcal/Kg Calculation Used for Recommendations Kcal/kg Additional Notes Protein: 0.8-1 g/Kg AdjBW; 67- 94 g/day. Fluids: 1 ml/Kcal, or as per MD. Nutrition Intervention Follow-Up By: 07/16/21 Additional Comments Nutrition education will be provided on F/U, if feasible. Continue monitoring food tolerance, %PO intake of meals , and BM.
--- NOTE | 2021-07-09 13:20 | Progress Note ---
Assessment and Plan 45-year-old male with morbid obesity, chronic back pain, smoker, hypertension, hyperlipidemia admitted overnight for STEMI. PCI with JOSE MIGUEL to ramus. Assessment: STEMI- s/p pci with JOSE MIGUEL to Ramus Acute diastolic heart failure Hyperlipidemia Hypertension Cardiomyopathy Obesity Cardiographics: Echo pending Plan: Echo results pending Patient admitted to ICU for STEMI overnight- is status post PCI with JOSE MIGUEL to ramus via right femoral artery. Patient having some mild chest soreness this morning on exam. Tele reveals ST low 100's. Will increase metoprolol to 50 mg p.o. twice daily. Post PCI trop 3.850. Cont to trend troponin x2 sets to ensure they are downtrending Am BMP with quite elevated blood glucose levels. Management per primary GDMT: Aspirin 81 mg p.o. daily, atorvastatin 80 mg p.o. nightly, Plavix 75 mg p.o. daily, losartan 25 mg p.o. daily., Metoprolol 50 mg p.o. twice daily Okay to transfer to telemetry floor today. Patient seen in conjunction with Dr. Sheppard who agrees with the assessment and management of this patient. - Patient Problems (1) Acute diastolic (congestive) heart failure Current Visit: Yes Status: Acute (2) Cardiomyopathy Current Visit: Yes Status: Acute Qualifiers: Cardiomyopathy type: ischemic Qualified Code(s): I25.5 - Ischemic cardiomyopathy (3) STEMI (ST elevation myocardial infarction) Current Visit: Yes Status: Acute Qualifiers: Involved coronary artery: other coronary artery Qualified Code(s): I21.29 - ST elevation (STEMI) myocardial infarction involving other sites (4) Unstable angina Current Visit: Yes Status: Acute (5) Hyperlipemia, mixed Current Visit: Yes Status: Chronic (6) Hypertension Current Visit: Yes Status: Chronic Qualifiers: Hypertension type: primary hypertension Qualified Code(s): I10 - Essential (primary) hypertension (7) Obesity (BMI 35.0-39.9 without comorbidity) Current Visit: Yes Status: Chronic Subjective Date of service: 07/09/21 Principal diagnosis: STEMI Interval history: Patient seen and examined today in the intensive care unit. Patient in no acute distress. Patient states he is having some mild chest soreness this morning, but it is not like the chest pain he was having last night during the STEMI. Right radial puncture site without bleeding or hematoma. Right femoral puncture site pressure dressing removed. Dressing clean dry intact. No bleeding or hematoma noted. DP pulses palpable bilaterally Telemetry: Sinus tach, low 100's Intake & Output 07/08/21 07/09/21 07/09/21 23:59 07:59 15:59 Intake Total 109.75 1000 200 Output Total 1200 450 Balance 109.75 -200 -250 Weight 117.9 kg Objective Vital Signs Temp Pulse Pulse Pulse Pulse Pulse Pulse 07/09/21 11:59 94 H 07/09/21 11:20 96 H 07/09/21 11:10 92 H 07/09/21 11:00 93 H 07/09/21 10:50 99 H 07/09/21 10:40 115 H 07/09/21 10:30 103 H 07/09/21 10:20 107 H 07/09/21 10:16 104 H 07/09/21 10:00 07/09/21 09:41 108 H 07/09/21 09:00 07/09/21 08:02 07/09/21 08:00 98.2 F 109 H 109 H 07/09/21 07:00 07/09/21 05:59 07/09/21 03:12 98.6 F 07/09/21 01:46 07/09/21 00:00 97.8 F 07/08/21 23:51 98 H 98 H 98 H 98 H 07/08/21 21:52 97.6 F 07/08/21 21:51 07/08/21 20:11 112 H 07/08/21 20:06 07/08/21 20:03 112 H 07/08/21 20:01 111 H 07/08/21 19:45 105 H 07/08/21 19:42 100 H 07/08/21 19:30 98.9 F 112 H Resp BP BP Pulse Ox 07/09/21 11:59 138/98 07/09/21 11:20 28 H 131/90 95 07/09/21 11:10 27 H 131/90 96 07/09/21 11:00 26 H 131/90 97 07/09/21 10:50 13 130/83 96 07/09/21 10:40 24 130/83 98 07/09/21 10:30 23 130/83 96 07/09/21 10:20 27 H 95 07/09/21 10:16 24 94 07/09/21 10:00 25 H 140/94 94 07/09/21 09:41 147/97 07/09/21 09:00 23 163/118 97 07/09/21 08:02 97 07/09/21 08:00 28 H 150/100 95 07/09/21 07:00 22 154/110 96 07/09/21 05:59 16 07/09/21 03:12 07/09/21 01:46 16 07/09/21 00:00 07/08/21 23:51 20 97 07/08/21 21:52 07/08/21 21:51 95 07/08/21 20:11 24 154/107 100 07/08/21 20:06 18 07/08/21 20:03 44 H 149/95 100 07/08/21 20:01 25 H 149/95 100 07/08/21 19:45 19 151/110 100 07/08/21 19:42 18 100 07/08/21 19:30 26 H 160/110 100 - Physical Examination General: Appears Well, No Apparent Distress HEENT: Positive: Normocephaly, Mucus Membranes Moist Neck: Positive: trachea midline Cardiac: Positive: S1/S2, Tachycardia Lungs: Positive: Normal Exam Neuro: Positive: Grossly Intact Abdomen: Positive: Soft, Active Bowel Sounds. Negative: Tender, Distended Skin: Positive: Clear Incision: Cardiac Cath Site (No hematomas; R fem dressing, clean, dry, intact ) Musculoskeletal: No Pain, Normal Range of Motion Extremities: Present: normal. Absent: edema - Labs and Meds Cardiac Enzymes 07/08/21 Range/Units 19:47 AST 29 (5-40) units/L Lipids 07/09/21 Range/Units 00:00 Triglycerides 117 (2-149) mg/dL Cholesterol 234 H (50-199) mg/dL HDL Cholesterol 37 L (40-59) mg/dL Cholesterol/HDL Ratio 6.32 % CBC 07/08/21 07/09/21 Range/Units 19:47 04:11 WBC 9.1 10.8 (4.5-11.0) K/mm3 RBC 5.65 H 5.54 H (3.65-5.03) M/mm3 Hgb 16.8 H 16.7 H (11.8-15.2) gm/dl Hct 50.7 H 50.8 H (35.5-45.6) % Plt Count 291 277 (140-440) K/mm3 Lymph # (Auto) 3.2 1.1 L (1.2-5.4) K/mm3 [place] # (Auto) 1.1 H 0.5 (0.0-0.8) K/mm3 Eos # (Auto) 0.0 0.0 (0.0-0.4) K/mm3 Baso # (Auto) 0.0 0.0 (0.0-0.1) K/mm3 Comprehensive Metabolic Panel 07/08/21 07/09/21 07/09/21 Range/Units 19:47 04:11 10:17 Sodium 136 L TNR 131 L (137-145) mmol/L Potassium 3.5 L TNR 5.2 H D (3.6-5.0) mmol/L Chloride 95.9 L TNR 93.0 L (98-107) mmol/L Carbon Dioxide 16 L TNR 16 L (22-30) mmol/L BUN 8 L TNR 10 (9-20) mg/dL Creatinine 0.9 TNR 0.9 (0.8-1.3) mg/dL Glucose 368 H TNR 329 H (75-100) mg/dL Calcium 10.2 TNR 9.2 (8.4-10.2) mg/dL AST 29 (5-40) units/L ALT 35 (7-56) units/L Alkaline Phosphatase 84 (35-129) units/L Total Protein 7.8 (6.3-8.2) g/dL Albumin 4.6 (3.9-5) g/dL - Imaging and Cardiology Echo: pending Cardiac cath: report reviewed (left main patent LAD patent circumflex patent ramus on a percent RCA patent moderate LV dysfunction with elevated left end-diastolic pressure. Patient has successful PCI of the ramus with a drug- eluting resolute 3.0 x 18 mm postdilated 3 5 x 12) - Telemetry EKG Rhythm: Sinus Tachycardia Myocardial infarction: lateral [place] (acute or rece - Allied health notes Allied health notes reviewed: nursing
[2021-07-09] MEDS: FAMOTIDINE 20 MG TAB PO SCH (13:51)
[2021-07-09] MEDS ORDERED: SODIUM POLYSTYRENE 15 GM/60 ML ORAL LIQD PO ONE (14:00)
[2021-07-09] MEDS: NICOTINE 21 MG/24 HR PATCH TD SCH (16:28)
[2021-07-09] MEDS: INSULIN GLARGINE 100 UNITS/ML SUB-Q SCH (21:24)
[2021-07-10 07:27] LABS: Hematocrit 53.6 % (35.5-45.6); Hemoglobin 17.7 gm/dl (11.8-15.2); Mean Corpuscular HGB Conc 33 % (32-34); Mean Corpuscular Volume 91 fl (84-94); Platelet Count 264 K/mm3 (140-440); Red Blood Count 5.91 M/mm3 (3.65-5.03)
--- NOTE | 2021-07-10 07:32 | Cardiac Catherization Report ---
DATE OF SERVICE: 07/08/2021 LEFT HEART CATHETERIZATION, PERCUTANEOUS CORONARY INTERVENTION REPORT, INTRAVASCULAR ULTRASOUND REPORT, AND ASPIRATION ATHERECTOMY REPORT CLINICAL INFORMATION: This is a 45-year-old -[place] gentleman, morbidly obese, smoker, hypertension, hyperlipidemia,, who presents with chest pain for several hours. EKG shows acute posterior wall NC and the patient was brought emergently to the assistant laboratory director. The patient was done with moderate sedation started at 2038 hours, finished at 2108 hours, which is 30 minutes of moderate sedation. DESCRIPTION OF PROCEDURE: The patient initially approached via the right radial artery to gain access, but had a recurrent radial loop. Unable to continue, so had to use the right common femoral artery, sterile technique and local anesthesia. A 6-Urdu groin sheath inserted. LV gram shows moderate LV dysfunction with lateral wall hypokinesis, EF around 30-35%, LVEDP of 35-40 mmHg. LV is 187, aortic is 188/101. No gradient across the aortic valve on pullback. RCA engaged with JR4 catheter, it is a large caliber vessel, is patent. PDA, PLV small to medium caliber and patent. Left system engaged with an EBU 3.5 catheter. Left main is large and patent, trifurcates into large LAD that is patent. Diagonal 1 medium caliber and was patent. Ramus is a large caliber vessel, 100% proximal. Circumflex is patent. OM1 is patent. So, percutaneous intervention of the ramus was performed as the culprit lesion. Adequate ACT was given. Aggrastat was given. The patient was preloaded with Plavix, engaged LCA with EBU 3.5 guide catheter crossed distal ramus with a short Runthrough wire. Balloon with a 2.5 x 12 balloon x 2 inflations, restoring MARCY 2 flow from MARCY 0 flow. The patient had multiple branches in that ramus vessel. 1. Using Ossian catheter for aspiration atherectomy x 2 passes. 2. Intravascular ultrasound showed distal reference vessel 3.0 x 3.2 approximately 3.5. 3. Stented the proximal mid ramus with a drug-eluting Resolute 3.0 x 18 mm, inflated at 15 atmospheres. 4. Postdilated the proximal mid portion of the stent with a 3.5 x 12 balloon at 15 atmospheres. 5. Excellent angiographic result, MARCY 3 flow. Side branch was still patent in the ramus and distal upper and lower branches were still patent. No dissection or perforation noted. I removed coronary wire, multiple angiograms excellent angiographic result, good stent apposition and expansion noted. No dissection noted. 6. A 6-Urdu guiding catheter removed over a guidewire. A 6-Urdu groin sheath sewn in. No hematoma, no bleeding. SUMMARY: 1. Successful percutaneous coronary intervention of the ramus with multiple branches in the proximal midsection with a drug-eluting Resolute 3.0 x 22, postdilated the proximal mid portion of the stent with 3.5 x 12 at 15 atmospheres. 2. Left main patent, LAD patent, circ patent. OM1 patent, RCA patent with moderate left ventricular dysfunction, EF 30% with lateral wall hypokinesis with elevated left end-diastolic pressure. The patient will continue aspirin and Plavix post-PCI care with sheath removal and ACT is less than 150. Discussed this with the patient and the patient's family in detail. TID: [id number] RECEIPT: [id number] EMMANUEL/GINA/LILI ANDINO
[2021-07-10 07:43] LABS: BUN/Creatinine Ratio 15; Blood Urea Nitrogen 12 mg/dL (9-20); Calcium 8.5 mg/dL (8.4-10.2); Hemolysis Index 24
[2021-07-10] MEDS: INSULIN LISPRO 100 UNIT/ML SUB-Q SCH ×5 (08:59→21:52)
[2021-07-10] MEDS: CLOPIDOGREL 75 MG TAB PO SCH (09:07)
[2021-07-10] MEDS: LOSARTAN 25 MG TAB PO SCH (09:07)
[2021-07-10] MEDS: ASPIRIN 81 MG TAB CHEW PO SCH (09:08)
[2021-07-10] MEDS: NICOTINE 21 MG/24 HR PATCH TD SCH ×2 (09:08→09:18)
[2021-07-10] MEDS: FAMOTIDINE 20 MG TAB PO SCH (09:10)
[2021-07-10] MEDS: METOPROLOL TARTRATE 50 MG TAB PO SCH ×2 (09:10→21:58)
--- NOTE | 2021-07-10 14:41 | XRay Report ---
CHEST 1 VIEW INDICATION: follow up after PCI. COMPARISON: 07/08/2021 FINDINGS: Support devices: None. Heart: Within normal limits. Lungs/Pleura: No acute air space or interstitial disease. No pleural abnormality or pneumothorax. Additional findings: None. IMPRESSION: No acute findings. Signer Name: Brayden Early Jr, MD Signed: 07/10/2021 2:36 PM Workstation Name: [id number]
--- NOTE | 2021-07-10 14:51 | Progress Note ---
Assessment and Plan 45 YO Male with Obesity, Nicotine Dependence presents to ED with complaint of chest pain and shortness of breath. Patient states that he has experienced a sudden onset of pain in his chest today with persistent and worsening symptoms over the same timeframe. Patient states that pain is 7/10, constant, substernal, nonradiating, worsened with exertion, relieved with rest, associated with diaphoresis, associated with shortness of breath. Patient transported [facility] via private vehicle for further care and evaluation of the aforementioned symptoms. EKG revealed evidence of STEMI, as well as clinical symptoms consistent with unstable angina, as well as diastolic CHF. Patient initiated on heparin drip, as well as antiplatelet therapy. Cardiology team consulted in ED and patient taken urgently to the [facility] [employer] [facility] for intervention. Patient admitted to ICU and initiated on STEMI protocol. Patient chest pain but denies fever, chills, productive cough, skin rash, recent contact, known exposure to COVID-19. Patient has history of smoking 2 to 3 cigaretts a day x 25 years. Counseled to stop smoking. 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 Patient alert, awake. Says feeling better than he came in. Denies chest pain, shortness of breath or cough at this time. Patient resting on room air. O2 saturation 100% Patient afebrile. No leukocytosis. Blood pressure 101/63, Pulse 91, Respirations 18. Chest xray 07/10/21 reported No acute findings. Patient morbidly Obese, complaining loud snoring. Patient presently on Plavix, aspirin, famotidine and Nicotine patch. Recommend PFTs as out patient. - Patient Problems (1) Acute diastolic (congestive) heart failure Current Visit: Yes Status: Acute Plan to address problem: Management as per cardiology. (2) Cardiomyopathy Current Visit: Yes Status: Acute Qualifiers: Cardiomyopathy type: ischemic Qualified Code(s): I25.5 - Ischemic cardiomyopathy Plan to address problem: Management as per cardiology. (3) STEMI (ST elevation myocardial infarction) Current Visit: Yes Status: Acute Qualifiers: Involved coronary artery: other coronary artery Qualified Code(s): I21.29 - ST elevation (STEMI) myocardial infarction involving other sites Plan to address problem: Management as per cardiology. (4) Hyperlipemia, mixed Current Visit: Yes Status: Chronic Plan to address problem: Management as per primary care. (5) Hypertension Current Visit: Yes Status: Chronic Qualifiers: Hypertension type: primary hypertension Qualified Code(s): I10 - Essential (primary) hypertension Plan to address problem: Management as per primary care. (6) Obesity (BMI 35.0-39.9 without comorbidity) Current Visit: Yes Status: Chronic Plan to address problem: Recommend to loose weight. Recommend sleep study as out patient. Subjective Date of service: 07/10/21 Principal diagnosis: STEMI Interval history: 45 YO Male with Obesity, Nicotine Dependence presents to ED with complaint of chest pain and shortness of breath. Patient states that he has experienced a sudden onset of pain in his chest today with persistent and worsening symptoms over the same timeframe. Patient states that pain is 7/10, constant, substernal, nonradiating, worsened with exertion, relieved with rest, associated with diaphoresis, associated with shortness of breath. Patient transported [facility] via private vehicle for further care and evaluation of the aforementioned symptoms. EKG revealed evidence of STEMI, as well as clinical symptoms consistent with unstable angina, as well as diastolic CHF. Patient initiated on heparin drip, as well as antiplatelet therapy. Cardiology team consulted in ED and patient taken urgently to the [facility] [employer] [facility] for intervention. Patient admitted to ICU and initiated on STEMI protocol. Patient chest pain but denies fever, chills, productive cough, skin rash, recent contact, known exposure to COVID-19. Patient has history of smoking 2 to 3 cigaretts a day x 25 years. Counseled to stop smoking. 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 Patient alert, awake. Says feeling better than he came in. Denies chest pain, shortness of breath or cough at this time. Patient resting on room air. O2 saturation 100% Patient afebrile. No leukocytosis. Blood pressure 101/63, Pulse 91, Respirations 18. Chest xray 07/10/21 reported No acute findings. Patient morbidly Obese, complaining loud snoring. Patient presently on Plavix, aspirin, famotidine and Nicotine patch. Recommend PFTs as out patient. Objective Vital Signs - 12hr 07/10/21 07/10/21 07/10/21 03:52 07:20 08:00 Temperature 98.8 F 98.7 F Pulse Rate 102 H 109 H 99 H Respiratory 18 18 Rate Blood Pressure 99/63 120/78 O2 Sat by Pulse 97 97 Oximetry 07/10/21 07/10/21 07/10/21 08:02 09:07 09:10 Temperature Pulse Rate 102 H 102 H Respiratory Rate Blood Pressure 112/78 112/78 O2 Sat by Pulse 99 Oximetry 07/10/21 07/10/21 07/10/21 10:09 12:00 12:21 Temperature 97.4 F L Pulse Rate 95 H Respiratory 20 Rate Blood Pressure 99/66 O2 Sat by Pulse 98 Oximetry Constitutional: no acute distress, alert, other (Morbidly Obese.) Eyes: non-icteric ENT: oropharynx moist, other (large neck) Neck: supple, no lymphadenopathy, no JVD Effort: normal Ascultation: Bilateral: diminished breath sounds Cardiovascular: regular rate and rhythm, other (S1,S2) Gastrointestinal: normoactive bowel sounds, soft, non-tender Integumentary: normal, other (No groin hematoma) Extremities: no cyanosis, no edema, pulses normal, no ischemia or petechiae Neurologic: normal mental status, non-focal exam, pupils equal and round, CN II- XII normal, motor strength normal and Psychiatric: mood appropriate, affect normal CBC and BMP: 07/11/21 10:18 07/11/21 10:18 Abnormal lab findings: Abnormal Labs 07/08/21 07/08/21 07/09/21 19:47 19:47 00:00 RBC 5.65 H Hgb 16.8 H Hct 50.7 H RDW 13.1 L Lymph % (Auto) 35.5 H [place] % (Auto) 12.1 H Lymph # (Auto) [place] # (Auto) 1.1 H Seg Neutrophils % Seg Neutrophils # Sodium 136 L Potassium 3.5 L Chloride 95.9 L Carbon Dioxide 16 L BUN 8 L Glucose 368 H POC Glucose Hemoglobin A1c Troponin T 2.130 H* D Cholesterol 234 H LDL Cholesterol Direct 164 H HDL Cholesterol 37 L 07/09/21 07/09/21 07/09/21 04:11 05:42 10:17 RBC 5.54 H Hgb 16.7 H Hct 50.8 H RDW Lymph % (Auto) 9.9 L [place] % (Auto) Lymph # (Auto) 1.1 L [place] # (Auto) Seg Neutrophils % 85.0 H Seg Neutrophils # 9.1 H Sodium 131 L Potassium 5.2 H D Chloride 93.0 L Carbon Dioxide 16 L BUN Glucose 329 H POC Glucose 318 H Hemoglobin A1c Troponin T 3.850 H* D Cholesterol LDL Cholesterol Direct HDL Cholesterol 07/09/21 07/09/21 07/09/21 10:17 11:03 16:01 RBC Hgb Hct RDW Lymph % (Auto) [place] % (Auto) Lymph # (Auto) [place] # (Auto) Seg Neutrophils % Seg Neutrophils # Sodium Potassium Chloride Carbon Dioxide BUN Glucose POC Glucose 277 H 285 H Hemoglobin A1c 13.9 H Troponin T Cholesterol LDL Cholesterol Direct HDL Cholesterol 07/09/21 07/09/21 07/10/21 21:18 23:52 07:06 RBC 5.91 H Hgb 17.7 H Hct 53.6 H RDW 13.0 L Lymph % (Auto) [place] % (Auto) Lymph # (Auto) [place] # (Auto) Seg Neutrophils % Seg Neutrophils # Sodium Potassium Chloride Carbon Dioxide BUN Glucose POC Glucose 257 H Hemoglobin A1c Troponin T 2.280 H* D Cholesterol LDL Cholesterol Direct HDL Cholesterol 07/10/21 07/10/21 07/10/21 07:06 07:18 08:18 RBC Hgb Hct RDW Lymph % (Auto) [place] % (Auto) Lymph # (Auto) [place] # (Auto) Seg Neutrophils % Seg Neutrophils # Sodium 128 L Potassium Chloride 91.2 L Carbon Dioxide 16 L BUN Glucose 257 H POC Glucose 265 H 261 H Hemoglobin A1c Troponin T Cholesterol LDL Cholesterol Direct HDL Cholesterol 07/10/21 10:48 RBC Hgb Hct RDW Lymph % (Auto) [place] % (Auto) Lymph # (Auto) [place] # (Auto) Seg Neutrophils % Seg Neutrophils # Sodium Potassium Chloride Carbon Dioxide BUN Glucose POC Glucose 323 H Hemoglobin A1c Troponin T Cholesterol LDL Cholesterol Direct HDL Cholesterol Chest x-ray: report reviewed, image reviewed Additional Studies: CHEST 1 VIEW 07/10/21 INDICATION: follow up after PCI. COMPARISON: 07/08/2021 FINDINGS: Support devices: None. Heart: Within normal limits. Lungs/Pleura: No acute air space or interstitial disease. No pleural abnormality or pneumothorax. Additional findings: None. IMPRESSION: No acute findings. Allied health notes reviewed: nursing
--- NOTE | 2021-07-10 16:40 | Progress Note ---
Assessment and Plan 45-year-old male with morbid obesity, chronic back pain, smoker, hypertension, hyperlipidemia admitted overnight for STEMI. PCI with JOSE MIGUEL to ramus. STEMI- s/p pci with JOSE MIGUEL to Ramus Hyperlipidemia Hypertension Cardiomyopathy Obesity Cardiac cath 07/08/2021- left main patent LAD patent circumflex patent ramus on a percent RCA patent moderate LV dysfunction with elevated left end-diastolic pressure. Patient has successful PCI of the ramus with a drug-eluting resolute 3.0 x 18 mm postdilated 3 5 x 12 Echo 07/08/2021-EF 20 to 25%. Mild diastolic dysfunction present impaired relaxation pattern. Right ventricle systolic function is mildly reduced Plan: Echo results noted above Patient transferred to telemetry Patient reports being chest pain-free Patient sinus 90s with episodes of sinus tach into the 130s. Unclear as to why patient is having episodes of sinus tach patient may possibly be dehydrated with will initiate gentle IVF with half-normal saline 50 cc/ hour. Post PCI trop 3.850 troponins downtrending 2.28 BMP with quite elevated blood glucose levels. Management per primary GDMT: Aspirin 81 mg p.o. daily, atorvastatin 80 mg p.o. nightly, Plavix 75 mg p.o. daily, losartan 25 mg p.o. daily., Metoprolol 50 mg p.o. twice daily Repeat chest x-ray shows no acute findings Patient seen in conjunction with Dr. Sheppard who agrees with the assessment and management of this patient - Patient Problems (1) Cardiomyopathy Current Visit: Yes Status: Acute Qualifiers: Cardiomyopathy type: ischemic Qualified Code(s): I25.5 - Ischemic cardiomyopathy (2) STEMI (ST elevation myocardial infarction) Current Visit: Yes Status: Acute Qualifiers: Involved coronary artery: other coronary artery Qualified Code(s): I21.29 - ST elevation (STEMI) myocardial infarction involving other sites (3) Hyperlipemia, mixed Current Visit: Yes Status: Chronic (4) Hypertension Current Visit: Yes Status: Chronic Qualifiers: Hypertension type: primary hypertension Qualified Code(s): I10 - Essential (primary) hypertension (5) Obesity (BMI 35.0-39.9 without comorbidity) Current Visit: Yes Status: Chronic Subjective Date of service: 07/10/21 Principal diagnosis: STEMI Interval history: Patient resting in bed in no acute distress. Patient reports no longer having chest soreness Patient sinus 90s with 2 episodes of sinus tach into the 130s overnight Objective Vital Signs Temp Pulse Pulse Resp BP Pulse Ox 07/10/21 12:21 97.4 F L 20 99/66 07/10/21 12:00 95 H 07/10/21 10:09 98 07/10/21 09:10 102 H 112/78 07/10/21 09:07 102 H 112/78 07/10/21 08:02 99 07/10/21 08:00 99 H 07/10/21 07:20 98.7 F 109 H 18 120/78 97 07/10/21 03:52 98.8 F 102 H 18 99/63 97 07/10/21 02:22 96 H 07/10/21 00:12 98.0 F 84 19 106/67 97 07/09/21 22:34 85 07/09/21 22:14 98.1 F 86 19 97/59 94 07/09/21 21:31 104 H 20 130/94 98 07/09/21 21:21 106 H 14 130/94 97 07/09/21 21:11 102 H 29 H 130/94 98 07/09/21 21:00 97 H 18 130/94 98 07/09/21 20:51 109 H 12 113/77 98 07/09/21 20:41 107 H 21 113/77 99 07/09/21 20:30 97 H 9 L 113/77 07/09/21 20:21 107 H 22 124/78 96 07/09/21 20:11 98 H 25 H 124/78 97 07/09/21 20:00 98.7 F 90 94 H 28 H 124/78 98 07/09/21 19:51 112 H 15 130/92 96 07/09/21 19:41 98 H 12 130/92 97 07/09/21 19:40 97 07/09/21 19:30 94 H 24 130/92 98 07/09/21 19:21 91 H 25 H 121/82 99 07/09/21 19:11 93 H 19 121/82 98 07/09/21 19:00 92 H 27 H 121/82 96 07/09/21 18:51 93 H 27 H 120/82 98 07/09/21 18:41 91 H 28 H 120/82 97 07/09/21 18:30 90 27 H 120/82 96 07/09/21 18:21 101 H 14 136/90 99 07/09/21 18:11 100 H 21 136/90 99 07/09/21 18:01 106 H 12 138/96 100 07/09/21 17:51 101 H 17 138/96 99 07/09/21 17:40 91 H 26 H 157/104 99 07/09/21 17:30 97 H 17 157/104 99 07/09/21 17:20 104 H 14 143/94 96 07/09/21 17:10 100 H 29 H 143/94 97 07/09/21 17:00 96 H 27 H 143/94 97 07/09/21 16:50 97 H 22 124/100 97 07/09/21 16:40 99 H 22 124/100 99 - Physical Examination General: Appears Well, No Apparent Distress HEENT: Positive: Normocephaly, Mucus Membranes Moist Neck: Positive: trachea midline Cardiac: Positive: Reg Rate and Rhythm Lungs: Positive: Normal Breath Sounds Neuro: Positive: Grossly Intact Abdomen: Positive: Soft, Active Bowel Sounds. Negative: Tender, Distended Skin: Positive: Clear Incision: Cardiac Cath Site (No hematomas; R fem dressing, clean, dry, intact ) Musculoskeletal: No Pain, Normal Range of Motion Extremities: Present: normal. Absent: edema - Labs and Meds CBC 07/10/21 Range/Units 07:06 WBC 10.7 (4.5-11.0) K/mm3 RBC 5.91 H (3.65-5.03) M/mm3 Hgb 17.7 H (11.8-15.2) gm/dl Hct 53.6 H (35.5-45.6) % Plt Count 264 (140-440) K/mm3 Comprehensive Metabolic Panel 07/10/21 Range/Units 07:06 Sodium 128 L (137-145) mmol/L Potassium 4.3 (3.6-5.0) mmol/L Chloride 91.2 L (98-107) mmol/L Carbon Dioxide 16 L (22-30) mmol/L BUN 12 (9-20) mg/dL Creatinine 0.8 (0.8-1.3) mg/dL Glucose 257 H (75-100) mg/dL Calcium 8.5 (8.4-10.2) mg/dL - Imaging and Cardiology Echo: report reviewed Cardiac cath: report reviewed (left main patent LAD patent circumflex patent ramus on a percent RCA patent moderate LV dysfunction with elevated left end- diastolic pressure. Patient has successful PCI of the ramus with a drug-eluting resolute 3.0 x 18 mm postdilated 3 5 x 12) - Telemetry EKG Rhythm: Sinus Rhythm - EKG Sinus rhythms and dysrhythmias: sinus rhythm Myocardial infarction: lateral [place] (acute or rece - Allied health notes Allied health notes reviewed: nursing
--- NOTE | 2021-07-10 17:11 | Progress Note ---
Assessment and Plan Assessment and plan: This is a 45-year-old male with past medical history of HTN, HLD, morbid obesity, chronic back pain, and nicotine dependence admitted for STEMI s/p PCI with JOSE MIGUEL to the Ramus. Hospital Course to Date: 07/09: Remains stable overnight, c/o of chest soreness which patient described as "soreness but not pain. Continue PRN analgesia for pain management. On GDMT therapy per Cardio. Severe hyperglycemia this am, HgbA1c is 13.9, SSI ACHS and basal insulin was initiated. Kayexalate was also administered for hyperkalemia. Continue to trend troponin and electrolytes. Okay to transfer patient to Telemetry per cardio. Assessment and Plan #STEMI (ST elevation myocardial infarction) #Diastolic CHF - Presented with 10/06, constant, substernal, nonradiating, worsened with exertion, relieved with rest, associated with diaphoresis, associated with shortness of breath - Initial EKG to have lateral wall myocardial infarction - Cardiology on consult, appreciated recommendations - 07/08 s/p emergent cardiac cath- succesfull PCI with JOSE MIGUEL to the Ramus - Cardiac cath 07/08/2021- left main patent LAD patent circumflex patent ramus on a percent RCA patent moderate LV dysfunction with elevated left end-diastolic pressure. Patient has successful PCI of the ramus with a drug-eluting resolute 3.0 x 18 mm postdilated 3 5 x 12 Echo 07/08/2021-EF 20 to 25%. Mild diastolic dysfunction present impaired relax ation pattern. Right ventricle systolic function is mildly reduced - On GDMT therapy per cardio #Hyperglycemia - Hgb A1c 13.9 - per patient no prior history of DM - SSI ACH and lantus qHs initiated, optimizing the therapy - Education and resources provided on DM - Nutrition also consulted for more DM education Sinus tachycardia Likely from dehydration IV fluids started by cardiology on 07/10 We will monitor #Hyperkelemia #Hypernatremia - Unclear etiology, probably 2/2 to Stemi - Ca wnr, will check mag and phosp - X1 dose of kayexalate - Monitor Na for now since patient VSS and he appear euvolemic - Continue to trend BMP - Monitor and replace electrolytes as needed #Nicotine Dependence - Thorough education of smoking cessation, patient verbalized understanding of info given - Smocking cessation resources provided - Nicotine patch Qday #Hypertension #Hyperlipidemia - BP is stable - Continue statin and current antihypertensive regimen - Continue blood pressure monitor per protocol - Maintain SBP less than 160 #Obesity (BMI 35.0-39.9 without comorbidity) - Balanced diet, increase physical activity at discharge - Nutrition consulted - Outpatient pulmonary follow-up for sleep study. #GI/DVT Prophylaxis - PPI- Pepcid - SCD bilateral lower extremities while in bed #Advance Care Planning - Disease education conducted, care plan discussed, diagnoses discussed, prognosis discussed. Patient acknowledges understanding and agreement with care plan Discussed with the patient, his and cardiology Disposition: Discharge deferred as IV fluids started for dehydration and sinus tachycardia by cardiology today. Possible discharge tomorrow. History Interval history: is present at bedside. Currently patient has no chest pains and denies dyspnea. However, he has a intermittent sinus tachycardia, cardiology started on IV fluid for dehydration. New onset DM, hypoglycemia is being optimized. Hospitalist Physical - Constitutional Vitals: Temp Pulse Resp BP Pulse Ox 97.4 F L 95 H 20 99/66 98 07/10/21 12:21 07/10/21 12:00 07/10/21 12:21 07/10/21 12:21 07/10/21 10:09 General appearance: Present: no acute distress, obese - EENT Eyes: Present: PERRL, EOM intact ENT: clear oral mucosa - Neck Neck: Present: supple, other (No JVD) - Respiratory Respiratory effort: normal Respiratory: bilateral: CTA - Extremities Extremities: No edema - Abdominal General gastrointestinal: soft, non-tender, normal bowel sounds - Integumentary Integumentary: Absent: rash - Psychiatric Psychiatric: appropriate mood/affect - Neurologic Neurologic: no focal deficits, moves all extremities HEART Score - HEART Score Troponin: Troponin T 2.280 ng/mL (0.00-0.029) H* D 07/09/21 23:52 Results - Labs CBC & Chem 7: 07/10/21 07:06 07/10/21 07:06 Labs: Laboratory Last Values WBC 10.7 K/mm3 (4.5-11.0) 07/10/21 07:06 RBC 5.91 M/mm3 (3.65-5.03) H 07/10/21 07:06 Hgb 17.7 gm/dl (11.8-15.2) H 07/10/21 07:06 Hct 53.6 % (35.5-45.6) H 07/10/21 07:06 MCV 91 fl (84-94) 07/10/21 07:06 MCH 30 pg (28-32) 07/10/21 07:06 MCHC 33 % (32-34) 07/10/21 07:06 RDW 13.0 % (13.2-15.2) L 07/10/21 07:06 Plt Count 264 K/mm3 (140-440) 07/10/21 07:06 Lymph % (Auto) 9.9 % (13.4-35.0) L 07/09/21 04:11 [place] % (Auto) 5.0 % (0.0-7.3) 07/09/21 04:11 Eos % (Auto) 0.0 % (0.0-4.3) 07/09/21 04:11 Baso % (Auto) 0.1 % (0.0-1.8) 07/09/21 04:11 Lymph # (Auto) 1.1 K/mm3 (1.2-5.4) L 07/09/21 04:11 [place] # (Auto) 0.5 K/mm3 (0.0-0.8) 07/09/21 04:11 Eos # (Auto) 0.0 K/mm3 (0.0-0.4) 07/09/21 04:11 Baso # (Auto) 0.0 K/mm3 (0.0-0.1) 07/09/21 04:11 Seg Neutrophils % 85.0 % (40.0-70.0) H 07/09/21 04:11 Seg Neutrophils # 9.1 K/mm3 (1.8-7.7) H 07/09/21 04:11 Sodium 128 mmol/L (137-145) L 07/10/21 07:06 Potassium 4.3 mmol/L (3.6-5.0) 07/10/21 07:06 Chloride 91.2 mmol/L (98-107) L 07/10/21 07:06 Carbon Dioxide 16 mmol/L (22-30) L 07/10/21 07:06 Anion Gap 25 mmol/L 07/10/21 07:06 BUN 12 mg/dL (9-20) 07/10/21 07:06 Creatinine 0.8 mg/dL (0.8-1.3) 07/10/21 07:06 Estimated GFR > 60 ml/min 07/10/21 07:06 BUN/Creatinine Ratio 15 % 07/10/21 07:06 Glucose 257 mg/dL (75-100) H 07/10/21 07:06 POC Glucose 323 mg/dL (70-105) H 07/10/21 10:48 Hemoglobin A1c 13.9 % (4-6) H 07/09/21 10:17 Calcium 8.5 mg/dL (8.4-10.2) 07/10/21 07:06 Phosphorus 2.80 mg/dL (2.5-4.5) 07/10/21 07:06 Magnesium 1.80 mg/dL (1.7-2.3) 07/10/21 07:06 Total Bilirubin 0.40 mg/dL (0.1-1.2) 07/08/21 19:47 AST 29 units/L (5-40) 07/08/21 19:47 ALT 35 units/L (7-56) 07/08/21 19:47 Alkaline Phosphatase 84 units/L (35-129) 07/08/21 19:47 Troponin T 2.280 ng/mL (0.00-0.029) H* D 07/09/21 23:52 NT-Pro-B Natriuret Pep 10.00 pg/mL (0-450) 07/08/21 19:47 Total Protein 7.8 g/dL (6.3-8.2) 07/08/21 19:47 Albumin 4.6 g/dL (3.9-5) 07/08/21 19:47 Albumin/Globulin Ratio 1.4 % 07/08/21 19:47 Triglycerides 117 mg/dL (2-149) 07/09/21 00:00 Cholesterol 234 mg/dL (50-199) H 07/09/21 00:00 LDL Cholesterol Direct 164 mg/dL (50-130) H 07/09/21 00:00 HDL Cholesterol 37 mg/dL (40-59) L 07/09/21 00:00 Cholesterol/HDL Ratio 6.32 % 07/09/21 00:00 [place]/IV: Voiding Method Urinal Active Medications - Current Medications Current Medications: Generic Name Dose Route Start Last Admin Trade Name Freq PRN Reason Stop Dose Admin Acetaminophen 650 mg 07/08/21 20:00 Acetaminophen 325 Mg Tab PO Q6H PRN Pain MILD(1-3)/Fever >100.5/LI Aspirin 81 mg 07/09/21 10:00 07/10/21 09:08 Aspirin 81 Mg Tab Chew PO 81 mg QDAY BELEM Administration Atorvastatin Calcium 80 mg 07/08/21 22:00 07/09/21 21:24 Atorvastatin 40 Mg Tab PO 80 mg QHS BELEM Administration Clopidogrel Bisulfate 75 mg 07/09/21 10:00 07/10/21 09:07 Clopidogrel 75 Mg Tab PO 75 mg QDAY BELEM Administration Dextrose 50 ml 07/09/21 09:00 Dextrose 50% In Water (25gm) 50 Ml Syringe IV Q30MIN PRN Hypoglycemia Protocol Famotidine 20 mg 07/09/21 14:00 07/10/21 09:10 Famotidine 20 Mg Tab PO 20 mg QDAY BELEM Administration Sodium Chloride 1,000 mls @ 50 mls/hr 07/10/21 14:00 Nacl 0.45% 1000 Ml IV DIRECT BELEM Insulin Glargine 15 units 07/09/21 22:00 07/09/21 21:24 Insulin Glargine 100 Units/Ml SUB-Q 15 units QHS BELEM Administration Insulin Human Lispro 0 unit 07/09/21 11:30 07/10/21 11:06 Insulin Lispro 100 Unit/Ml SUB-Q 8 unit ACHS BELEM Administration Protocol Losartan Potassium 25 mg 07/09/21 10:00 07/10/21 09:07 Losartan 25 Mg Tab PO 25 mg QDAY BELEM Administration Metoprolol Tartrate 50 mg 07/09/21 12:00 07/10/21 09:10 Metoprolol Tartrate 50 Mg Tab PO 50 mg BID BELEM Administration Morphine Sulfate 2 mg 07/09/21 01:07 07/09/21 09:57 Morphine 4 Mg/1 Ml Inj IV 2 mg Q4H PRN Administration Pain , Severe (7-10) Nicotine 21 mg 07/09/21 17:00 07/10/21 09:18 Nicotine 21 Mg/24 Hr Patch TD Not Given QDAY BELEM Oxycodone/Acetaminophen 1 tab 07/08/21 20:00 07/08/21 22:23 Oxycodone /Acetaminophen 5-325mg Tab PO 1 tab Q6H PRN Administration Pain, Moderate (4-6) Sodium Chloride 10 ml 07/08/21 22:00 07/10/21 09:10 Sodium Chloride 0.9% 10 Ml Flush Syringe IV 10 ml BID BELEM Administration Sodium Chloride 10 ml 07/08/21 20:00 Sodium Chloride 0.9% 10 Ml Flush Syringe IV PRN PRN LINE FLUSH Nutrition/Malnutrition Assess - Dietary Evaluation Nutrition/Malnutrition Findings: Nutrition Notes Start: 07/09/21 15:54 Freq: Status: Active Protocol: Document 07/09/21 15:54 ORACIO (Rec: 07/09/21 16:05 ORACIO [id number]) Nutrition Notes Need for Assessment generated from: MD Order,Education Initial or Follow up Brief Note Other Pertinent Diagnosis Chest Pain, CHF, STEMI. Current Diet Cardiac Diet (since B 07/09). Height 5 ft 8 in Weight 117.9 kg [place] Body Weight (kg) 70.00 BMI 39.5 Intake Prior to Admission Good Weight change and time frame Pt denies having loss body weight [employer]. Weight Status Obese Subjective/Other Information RD consult for nutrition education. No reports available on Pt's PO intake of meals at the time , will assess at F/U. Pt still in critical condition , not a candidate for Nutrition Education at the time, will assess feasibility on F/U. Percent of energy/protein needs met: Prescribed Cardiac Diet provides for energy/protein needs (2,230 Kcal/85 g) during LOS. Is patient on ventilator? No Is Patient Ambulatory and/or Out of Bed Yes REE-([facility]-ambulatory/OOB) [ 2663.050 [id number]] Kcal/Kg value to use for calculation 16 Approximate Energy Requirements Using 1886 kcal/Kg Calculation Used for Recommendations Kcal/kg Additional Notes Protein: 0.8-1 g/Kg AdjBW; 67- 94 g/day. Fluids: 1 ml/Kcal, or as per MD. Nutrition Intervention Follow-Up By: 07/16/21 Additional Comments Nutrition education will be provided on F/U, if feasible. Continue monitoring food tolerance, %PO intake of meals , and BM.
[2021-07-10] MEDS: SODIUM CHLORIDE 0.45% 1000 ML 1,000 ML IV SCH (17:27)
[2021-07-10] MEDS: INSULIN GLARGINE 100 UNITS/ML SUB-Q SCH (21:53)
--- NOTE | 2021-07-11 08:35 | Progress Note ---
Subjective Date of service: 07/11/21 Principal diagnosis: STEMI Objective Vital Signs - 12hr 07/10/21 07/10/21 07/10/21 21:58 22:00 23:00 Temperature Pulse Rate 99 H 100 H Pulse Rate [ 99 H From Monitor] Respiratory 21 Rate Blood Pressure 113/78 O2 Sat by Pulse 98 Oximetry 07/10/21 07/10/21 07/11/21 23:39 23:40 03:00 Temperature Pulse Rate 82 98 H Pulse Rate [ From Monitor] Respiratory Rate Blood Pressure 96/57 104/69 O2 Sat by Pulse 98 Oximetry 07/11/21 07/11/21 04:05 08:17 Temperature 98.8 F 98.6 F Pulse Rate 87 104 H Pulse Rate [ From Monitor] Respiratory 19 18 Rate Blood Pressure 91/55 101/60 O2 Sat by Pulse 99 99 Oximetry Constitutional: no acute distress, alert, other (Obese) Eyes: non-icteric ENT: oropharynx moist, other (large neck) Neck: supple, no lymphadenopathy, no JVD Effort: normal Ascultation: Bilateral: clear, diminished breath sounds Cardiovascular: regular rate and rhythm, other (S1,S2) Gastrointestinal: normoactive bowel sounds, soft, non-tender Integumentary: normal, other (No groin hematoma) Extremities: no cyanosis, no edema, pulses normal, no ischemia or petechiae Neurologic: normal mental status, non-focal exam, pupils equal and round, motor strength normal and Psychiatric: mood appropriate, affect normal CBC and BMP: 07/10/21 07:06 07/10/21 07:06 Abnormal lab findings: Abnormal Labs 07/08/21 07/08/21 07/09/21 19:47 19:47 00:00 RBC 5.65 H Hgb 16.8 H Hct 50.7 H RDW 13.1 L Lymph % (Auto) 35.5 H [place] % (Auto) 12.1 H Lymph # (Auto) [place] # (Auto) 1.1 H Seg Neutrophils % Seg Neutrophils # Sodium 136 L Potassium 3.5 L Chloride 95.9 L Carbon Dioxide 16 L BUN 8 L Glucose 368 H POC Glucose Hemoglobin A1c Troponin T 2.130 H* D Cholesterol 234 H LDL Cholesterol Direct 164 H HDL Cholesterol 37 L 07/09/21 07/09/21 07/09/21 04:11 05:42 10:17 RBC 5.54 H Hgb 16.7 H Hct 50.8 H RDW Lymph % (Auto) 9.9 L [place] % (Auto) Lymph # (Auto) 1.1 L [place] # (Auto) Seg Neutrophils % 85.0 H Seg Neutrophils # 9.1 H Sodium 131 L Potassium 5.2 H D Chloride 93.0 L Carbon Dioxide 16 L BUN Glucose 329 H POC Glucose 318 H Hemoglobin A1c Troponin T 3.850 H* D Cholesterol LDL Cholesterol Direct HDL Cholesterol 07/09/21 07/09/21 07/09/21 10:17 11:03 16:01 RBC Hgb Hct RDW Lymph % (Auto) [place] % (Auto) Lymph # (Auto) [place] # (Auto) Seg Neutrophils % Seg Neutrophils # Sodium Potassium Chloride Carbon Dioxide BUN Glucose POC Glucose 277 H 285 H Hemoglobin A1c 13.9 H Troponin T Cholesterol LDL Cholesterol Direct HDL Cholesterol 07/09/21 07/09/21 07/10/21 21:18 23:52 07:06 RBC 5.91 H Hgb 17.7 H Hct 53.6 H RDW 13.0 L Lymph % (Auto) [place] % (Auto) Lymph # (Auto) [place] # (Auto) Seg Neutrophils % Seg Neutrophils # Sodium Potassium Chloride Carbon Dioxide BUN Glucose POC Glucose 257 H Hemoglobin A1c Troponin T 2.280 H* D Cholesterol LDL Cholesterol Direct HDL Cholesterol 07/10/21 07/10/21 07/10/21 07:06 07:18 08:18 RBC Hgb Hct RDW Lymph % (Auto) [place] % (Auto) Lymph # (Auto) [place] # (Auto) Seg Neutrophils % Seg Neutrophils # Sodium 128 L Potassium Chloride 91.2 L Carbon Dioxide 16 L BUN Glucose 257 H POC Glucose 265 H 261 H Hemoglobin A1c Troponin T Cholesterol LDL Cholesterol Direct HDL Cholesterol 07/10/21 07/10/21 07/10/21 10:48 15:40 21:14 RBC Hgb Hct RDW Lymph % (Auto) [place] % (Auto) Lymph # (Auto) [place] # (Auto) Seg Neutrophils % Seg Neutrophils # Sodium Potassium Chloride Carbon Dioxide BUN Glucose POC Glucose 323 H 315 H 259 H Hemoglobin A1c Troponin T Cholesterol LDL Cholesterol Direct HDL Cholesterol 07/11/21 08:16 RBC Hgb Hct RDW Lymph % (Auto) [place] % (Auto) Lymph # (Auto) [place] # (Auto) Seg Neutrophils % Seg Neutrophils # Sodium Potassium Chloride Carbon Dioxide BUN Glucose POC Glucose 220 H Hemoglobin A1c Troponin T Cholesterol LDL Cholesterol Direct HDL Cholesterol Allied health notes reviewed: nursing
[2021-07-11] MEDS: INSULIN LISPRO 100 UNIT/ML SUB-Q SCH ×4 (08:36→21:34)
[2021-07-11] MEDS ORDERED: INSULIN GLARGINE 100 UNITS/ML SUB-Q SCH (10:00)
[2021-07-11] MEDS: CLOPIDOGREL 75 MG TAB PO SCH (10:04)
[2021-07-11] MEDS: METOPROLOL TARTRATE 50 MG TAB PO SCH ×2 (10:04→21:31)
[2021-07-11] MEDS: FAMOTIDINE 20 MG TAB PO SCH (10:04)
[2021-07-11] MEDS: ASPIRIN 81 MG TAB CHEW PO SCH (10:04)
[2021-07-11] MEDS: LOSARTAN 25 MG TAB PO SCH (10:04)
[2021-07-11] MEDS: NICOTINE 21 MG/24 HR PATCH TD SCH (10:08)
[2021-07-11 10:47] LABS: Hematocrit 48.2 % (35.5-45.6); Hemoglobin 16.8 gm/dl (11.8-15.2); Mean Corpuscular HGB Conc 35 % (32-34); Mean Corpuscular Volume 89 fl (84-94); Platelet Count 244 K/mm3 (140-440); Red Blood Count 5.42 M/mm3 (3.65-5.03); Red Cell Distribution Width 13.1 % (13.2-15.2)
[2021-07-11 10:50] LABS: BUN/Creatinine Ratio 20; Blood Urea Nitrogen 18 mg/dL (9-20); Calcium 8.3 mg/dL (8.4-10.2); Hemolysis Index 20
[2021-07-11] MEDS ORDERED: POTASSIUM CHLORIDE ER 20 MEQ TAB PO ONE ×2 (12:22→16:00)
--- NOTE | 2021-07-11 12:31 | Progress Note ---
Subjective Date of service: 07/11/21 Principal diagnosis: STEMI Interval history: This is a 45-year-old male with past medical history of HTN, HLD, morbid obesity, chronic back pain, and nicotine dependence admitted for STEMI s/p PCI with JOSE MIGUEL to the Ramus. Hospital Course to Date: 07/09: Remains stable overnight, c/o of chest soreness which patient described as "soreness but not pain. Continue PRN analgesia for pain management. On GDMT therapy per Cardio. Severe hyperglycemia this am, HgbA1c is 13.9, SSI ACHS and basal insulin was initiated. Kayexalate was also administered for hyperkalemia. Continue to trend troponin and electrolytes. Okay to transfer patient to Telemetry per cardio. Assessment and Plan #STEMI (ST elevation myocardial infarction) #Diastolic CHF - Presented with 10/06, constant, substernal, nonradiating, worsened with exertion, relieved with rest, associated with diaphoresis, associated with shortness of breath - Initial EKG to have lateral wall myocardial infarction - Cardiology on consult, appreciated recommendations - 07/08 s/p emergent cardiac cath- succesfull PCI with JOSE MIGUEL to the Ramus - Cardiac cath 07/08/2021- left main patent LAD patent circumflex patent ramus on a percent RCA patent moderate LV dysfunction with elevated left end-diastolic pressure. Patient has successful PCI of the ramus with a drug-eluting resolute 3.0 x 18 mm postdilated 3 5 x 12 Echo 07/08/2021-EF 20 to 25%. Mild diastolic dysfunction present impaired relaxation pattern. Right ventricle systolic function is mildly reduced - On GDMT therapy per cardio #New onset type 2 diabetes with severe hyperglycemia - Hgb A1c 13.9 Accu-Cheks reviewed poorly controlled Increase Lantus insulin to 35 units twice daily, we will also add low-dose glimepiride - per patient no prior history of DM - SSI ACH and lantus qHs initiated, optimizing the therapy - Education and resources provided on DM - Nutrition also consulted for more DM education Sinus tachycardia Likely from dehydration IV fluids started by cardiology on 07/10 -Discussed with cardiology PA and he is recommending continuation of IV fluids for 24 hours -He is aware that patient's EF is 20 to 25% -Will decrease IV fluid rate to 50 mL/h We will monitor #Hyperkelemia Improved with Kayexalate #Hyponatremia - 2/2 hyperglycemia - Ca wnr, will check mag and phosp - Monitor Na for now since patient VSS and he appear euvolemic - Continue to trend BMP - Monitor and replace electrolytes as needed #Nicotine Dependence - Thorough education of smoking cessation, patient verbalized understanding of info given - Smocking cessation resources provided - Nicotine patch Qday #Hypertension Fair #Hyperlipidemia - BP is stable - Continue statin and current antihypertensive regimen - Continue blood pressure monitor per protocol - Maintain SBP less than 160 #Obesity (BMI 35.0-39.9 without comorbidity) - Balanced diet, increase physical activity at discharge - Nutrition consulted - Outpatient pulmonary follow-up for sleep study. #GI/DVT Prophylaxis - PPI- Pepcid - SCD bilateral lower extremities while in bed #Advance Care Planning - Disease education conducted, care plan discussed, diagnoses discussed, prognosis discussed. Patient acknowledges understanding and agreement with care plan Discussed with the patient, his and cardiology Disposition: Discharge deferred as IV fluids started for dehydration and sinus tachycardia by cardiology today. Possible discharge tomorrow. Objective - Constitutional Vitals: Vital Signs - 12hr 07/11/21 07/11/21 07/11/21 03:00 04:05 08:17 Temperature 98.8 F 98.6 F Pulse Rate 98 H 87 104 H Pulse Rate [ From Monitor] Respiratory 19 18 Rate Blood Pressure 91/55 101/60 O2 Sat by Pulse 99 99 Oximetry 07/11/21 10:51 Temperature Pulse Rate Pulse Rate [ 99 H From Monitor] Respiratory 21 Rate Blood Pressure O2 Sat by Pulse 98 Oximetry General appearance: Present: no acute distress, well-nourished, obese - EENT Eyes: PERRL, EOM intact ENT: hearing intact - Neck Neck: supple, normal ROM - Respiratory Respiratory effort: normal Respiratory: bilateral: CTA - Cardiovascular Rhythm: regular Heart Sounds: Present: S1 & S2 Extremities: No edema - Gastrointestinal General gastrointestinal: Present: soft, non-tender Rectal Exam: deferred - Genitourinary Male genitourinary: deferred - Integumentary Integumentary: clear - Musculoskeletal Musculoskeletal: strength equal bilaterally - Neurologic Neurologic: no focal deficits, moves all extremities - Psychiatric Psychiatric: appropriate mood/affect - Labs CBC & Chem 7: 07/11/21 10:18 07/11/21 10:18 Labs: Abnormal lab results 07/10/21 07/10/21 07/11/21 Range/Units 15:40 21:14 08:16 RBC (3.65-5.03) M/mm3 Hgb (11.8-15.2) gm/dl Hct (35.5-45.6) % MCHC (32-34) % RDW (13.2-15.2) % Sodium (137-145) mmol/L Potassium (3.6-5.0) mmol/L Chloride (98-107) mmol/L Carbon Dioxide (22-30) mmol/L Glucose (75-100) mg/dL POC Glucose 315 H 259 H 220 H (70-105) mg/dL Calcium (8.4-10.2) mg/dL 07/11/21 07/11/21 Range/Units 10:18 10:18 RBC 5.42 H (3.65-5.03) M/mm3 Hgb 16.8 H (11.8-15.2) gm/dl Hct 48.2 H (35.5-45.6) % MCHC 35 H (32-34) % RDW 13.1 L (13.2-15.2) % Sodium 129 L (137-145) mmol/L Potassium 3.5 L (3.6-5.0) mmol/L Chloride 93.1 L (98-107) mmol/L Carbon Dioxide 21 L (22-30) mmol/L Glucose 256 H (75-100) mg/dL POC Glucose (70-105) mg/dL Calcium 8.3 L (8.4-10.2) mg/dL HEART Score - HEART Score Troponin: Troponin T 2.280 ng/mL (0.00-0.029) H* D 07/09/21 23:52
--- NOTE | 2021-07-11 14:42 | Progress Note ---
Assessment and Plan 45-year-old male with morbid obesity, chronic back pain, smoker, hypertension, hyperlipidemia admitted overnight for STEMI. PCI with JOSE MIGUEL to ramus. STEMI- s/p pci with JOSE MIGUEL to Ramus Hyponatremia Hyperlipidemia Hypertension Cardiomyopathy Obesity Cardiac cath 07/08/2021- left main patent LAD patent circumflex patent ramus on a percent RCA patent moderate LV dysfunction with elevated left end-diastolic pressure. Patient has successful PCI of the ramus with a drug-eluting resolute 3.0 x 18 mm postdilated 3 5 x 12 Echo 07/08/2021-EF 20 to 25%. Mild diastolic dysfunction present impaired relaxation pattern. Right ventricle systolic function is mildly reduced Plan: Patient remains chest pain-free Patient sinus 90s with episodes of sinus tach into the 130s. Unclear as to why patient is having episodes of sinus tach patient may possibly be dehydrated Continue gentle IVF with half-normal saline however will increase to 75 cc/ hour. BMP with quite elevated blood glucose levels. Management per primary GDMT: Aspirin 81 mg p.o. daily, atorvastatin 80 mg p.o. nightly, Plavix 75 mg p.o. daily, losartan 25 mg p.o. daily., Metoprolol 50 mg p.o. twice daily Due to hyponatremia primary team may wish to consider nephrology consult. Discussed case with hospitalist Patient seen in conjunction with Dr. Sheppard who agrees with the assessment and management of this patient - Patient Problems (1) Cardiomyopathy Current Visit: Yes Status: Acute Qualifiers: Cardiomyopathy type: ischemic Qualified Code(s): I25.5 - Ischemic cardiomyopathy (2) STEMI (ST elevation myocardial infarction) Current Visit: Yes Status: Acute Qualifiers: Involved coronary artery: other coronary artery Qualified Code(s): I21.29 - ST elevation (STEMI) myocardial infarction involving other sites (3) Hyperlipemia, mixed Current Visit: Yes Status: Chronic (4) Hypertension Current Visit: Yes Status: Chronic Qualifiers: Hypertension type: primary hypertension Qualified Code(s): I10 - Essential (primary) hypertension (5) Obesity (BMI 35.0-39.9 without comorbidity) Current Visit: Yes Status: Chronic Subjective Date of service: 07/11/21 Principal diagnosis: STEMI Interval history: Patient resting in bed in no acute distress. Patient reports feeling well Patient sinus 90s with episodes of sinus tach into the 130s overnight and this a.m. Objective Vital Signs Temp Pulse Pulse Resp BP Pulse Ox 07/11/21 10:51 99 H 21 98 07/11/21 08:17 98.6 F 104 H 18 101/60 99 07/11/21 04:05 98.8 F 87 19 91/55 99 07/11/21 03:00 98 H 07/10/21 23:40 104/69 07/10/21 23:39 82 96/57 98 07/10/21 23:00 100 H 07/10/21 22:00 99 H 21 98 07/10/21 21:58 99 H 113/78 07/10/21 19:52 99.3 F 99 H 19 113/78 93 07/10/21 16:00 94 H 07/10/21 15:42 98.6 F 91 H 18 101/63 100 - Physical Examination General: Appears Well, No Apparent Distress HEENT: Positive: Normocephaly, Mucus Membranes Moist Neck: Positive: trachea midline Cardiac: Positive: Reg Rate and Rhythm Lungs: Positive: Normal Breath Sounds Neuro: Positive: Grossly Intact Abdomen: Positive: Soft, Active Bowel Sounds. Negative: Tender, Distended Skin: Positive: Clear Incision: Cardiac Cath Site (No hematomas; R fem dressing, clean, dry, intact ) Musculoskeletal: No Pain, Normal Range of Motion Extremities: Present: normal. Absent: edema - Labs and Meds CBC 07/11/21 Range/Units 10:18 WBC 9.3 (4.5-11.0) K/mm3 RBC 5.42 H (3.65-5.03) M/mm3 Hgb 16.8 H (11.8-15.2) gm/dl Hct 48.2 H (35.5-45.6) % Plt Count 244 (140-440) K/mm3 Comprehensive Metabolic Panel 07/11/21 Range/Units 10:18 Sodium 129 L (137-145) mmol/L Potassium 3.5 L (3.6-5.0) mmol/L Chloride 93.1 L (98-107) mmol/L Carbon Dioxide 21 L (22-30) mmol/L BUN 18 (9-20) mg/dL Creatinine 0.9 (0.8-1.3) mg/dL Glucose 256 H (75-100) mg/dL Calcium 8.3 L (8.4-10.2) mg/dL - Imaging and Cardiology Echo: report reviewed Cardiac cath: report reviewed (left main patent LAD patent circumflex patent ramus on a percent RCA patent moderate LV dysfunction with elevated left end- diastolic pressure. Patient has successful PCI of the ramus with a drug-eluting resolute 3.0 x 18 mm postdilated 3 5 x 12) - Telemetry EKG Rhythm: Sinus Rhythm - EKG Sinus rhythms and dysrhythmias: sinus rhythm Myocardial infarction: lateral [place] (acute or rece - Allied health notes Allied health notes reviewed: nursing
[2021-07-11] MEDS: SODIUM CHLORIDE 0.45% 1000 ML 1,000 ML IV SCH (15:01)
[2021-07-11] MEDS: GLIMEPIRIDE 2 MG TAB PO SCH (15:02)
--- NOTE | 2021-07-11 19:52 | Electrocardiograph Report ---
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
--- NOTE | 2021-07-11 19:57 | Electrocardiograph Report ---
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
[2021-07-11] MEDS: INSULIN GLARGINE 100 UNITS/ML SUB-Q SCH (21:37)
[2021-07-12] MEDS: METOPROLOL TARTRATE 50 MG TAB PO SCH ×3 (05:51→21:26)
[2021-07-12] MEDS: INSULIN LISPRO 100 UNIT/ML SUB-Q SCH ×4 (07:40→21:28)
[2021-07-12 09:40] LABS: Calcium 9.4 mg/dL (8.4-10.2)
[2021-07-12] MEDS: NICOTINE 21 MG/24 HR PATCH TD SCH (09:48)
[2021-07-12] MEDS: GLIMEPIRIDE 2 MG TAB PO SCH (09:57)
[2021-07-12] MEDS: FAMOTIDINE 20 MG TAB PO SCH (09:57)
[2021-07-12] MEDS: ASPIRIN 81 MG TAB CHEW PO SCH (09:57)
[2021-07-12] MEDS: SODIUM CHLORIDE 0.45% 1000 ML 1,000 ML IV SCH (09:57)
[2021-07-12] MEDS: LOSARTAN 25 MG TAB PO SCH (09:57)
[2021-07-12] MEDS: CLOPIDOGREL 75 MG TAB PO SCH (09:58)
[2021-07-12 10:28] LABS: Mean Corpuscular HGB Conc 34 % (32-34); Mean Corpuscular Volume 90 fl (84-94); Platelet Count 226 K/mm3 (140-440); Red Blood Count 3.71 M/mm3 (3.65-5.03); Red Cell Distribution Width 12.7 % (13.2-15.2)
[2021-07-12 10:32] LABS: Hematocrit 49.2 % (35.5-45.6); Hemoglobin 16.3 gm/dl (11.8-15.2)
--- NOTE | 2021-07-12 11:21 | Progress Note ---
Assessment and Plan 45-year-old male with morbid obesity, chronic back pain, smoker, hypertension, hyperlipidemia admitted overnight for STEMI. PCI with JOSE MIGUEL to ramus. STEMI- s/p pci with JOSE MIGUEL to Ramus Hyponatremia Hyperlipidemia Hypertension Cardiomyopathy Obesity Cardiac cath 07/08/2021- left main patent LAD patent circumflex patent ramus on a percent RCA patent moderate LV dysfunction with elevated left end-diastolic pressure. Patient has successful PCI of the ramus with a drug-eluting resolute 3.0 x 18 mm postdilated 3 5 x 12 Echo 07/08/2021-EF 20 to 25%. Mild diastolic dysfunction present impaired relaxation pattern. Right ventricle systolic function is mildly reduced Plan: Patient remains chest pain-free Patient in sinus rhythm 80s to 90s on monitor GDMT: Aspirin 81 mg p.o. daily, atorvastatin 80 mg p.o. nightly, Plavix 75 mg p.o. daily, losartan 25 mg p.o. daily., Metoprolol 50 mg p.o. twice daily Patient creatinine increased today. Discussed with hospitalist who consulted nephrology Cardiac status otherwise stable Patient has follow-up appointment with Dr. Todd, [facility] marketing development specialist, on 07/22/2021 at 8:30 AM. Phone #[phone] Patient seen in conjunction with Dr. Sheppard who agrees with the assessment and management of this patient - Patient Problems (1) Cardiomyopathy Current Visit: Yes Status: Acute Qualifiers: Cardiomyopathy type: ischemic Qualified Code(s): I25.5 - Ischemic cardiomyopathy (2) STEMI (ST elevation myocardial infarction) Current Visit: Yes Status: Acute Qualifiers: Involved coronary artery: other coronary artery Qualified Code(s): I21.29 - ST elevation (STEMI) myocardial infarction involving other sites (3) Hyperlipemia, mixed Current Visit: Yes Status: Chronic (4) Hypertension Current Visit: Yes Status: Chronic Qualifiers: Hypertension type: primary hypertension Qualified Code(s): I10 - Essential (primary) hypertension (5) Obesity (BMI 35.0-39.9 without comorbidity) Current Visit: Yes Status: Chronic Subjective Date of service: 07/12/21 Principal diagnosis: STEMI Interval history: Patient resting in bed in no acute distress. Patient reports feeling well Patient sinus 80s-90s Objective Vital Signs Temp Pulse Pulse Resp BP BP Pulse Ox 07/12/21 08:46 98.8 F 97 H 102/70 99 07/12/21 06:37 99 H 21 98 07/12/21 04:00 98.3 F 92 H 20 102/60 100 07/12/21 00:11 98.6 F 88 19 93/55 98 07/11/21 22:00 104 H 99 H 21 98 07/11/21 19:56 98.7 F 92 H 18 99/50 99 07/11/21 16:32 98.6 F 100 H 18 88/43 98 - Physical Examination General: Appears Well, No Apparent Distress HEENT: Positive: Normocephaly, Mucus Membranes Moist Neck: Positive: trachea midline Cardiac: Positive: Reg Rate and Rhythm Lungs: Positive: Normal Breath Sounds Neuro: Positive: Grossly Intact Abdomen: Positive: Soft, Active Bowel Sounds. Negative: Tender, Distended Skin: Positive: Clear Incision: Cardiac Cath Site (No hematomas; R fem dressing, clean, dry, intact ) Musculoskeletal: No Pain, Normal Range of Motion Extremities: Present: normal. Absent: edema - Labs and Meds CBC 07/12/21 Range/Units 08:19 WBC 4.1 L (4.5-11.0) K/mm3 RBC 3.71 (3.65-5.03) M/mm3 Hgb 16.3 H (11.8-15.2) gm/dl Hct 49.2 H (35.5-45.6) % Plt Count 226 (140-440) K/mm3 Comprehensive Metabolic Panel 07/12/21 Range/Units 08:19 Sodium 141 D (137-145) mmol/L Potassium 3.9 (3.6-5.0) mmol/L Chloride 106.0 (98-107) mmol/L Carbon Dioxide 23 (22-30) mmol/L BUN 22 H (9-20) mg/dL Creatinine 1.7 H D (0.8-1.3) mg/dL Glucose 140 H (75-100) mg/dL Calcium 9.4 (8.4-10.2) mg/dL - Imaging and Cardiology Echo: report reviewed Cardiac cath: report reviewed (left main patent LAD patent circumflex patent ramus on a percent RCA patent moderate LV dysfunction with elevated left end- diastolic pressure. Patient has successful PCI of the ramus with a drug-eluting resolute 3.0 x 18 mm postdilated 3 5 x 12) - Telemetry EKG Rhythm: Sinus Rhythm - EKG Sinus rhythms and dysrhythmias: sinus rhythm Myocardial infarction: lateral NM (acute or rece - Allied health notes Allied health notes reviewed: nursing
[2021-07-12] MEDS: INSULIN GLARGINE 100 UNITS/ML SUB-Q SCH ×2 (12:05→21:25)
--- NOTE | 2021-07-12 14:14 | Progress Note ---
Subjective Date of service: 07/12/21 Principal diagnosis: STEMI Objective Vital Signs - 12hr 07/12/21 07/12/21 07/12/21 04:00 06:37 08:46 Temperature 98.3 F 98.8 F Pulse Rate 92 H 97 H Pulse Rate [ 99 H From Monitor] Respiratory 20 21 Rate Blood Pressure 102/70 Blood Pressure 102/60 [Right] O2 Sat by Pulse 100 98 99 Oximetry Constitutional: no acute distress, alert, other (Morbidly Obese.) Eyes: non-icteric ENT: oropharynx moist, other (large neck) Neck: supple, no lymphadenopathy, no JVD Effort: normal Ascultation: Bilateral: clear, diminished breath sounds Cardiovascular: regular rate and rhythm, other (S1,S2) Gastrointestinal: normoactive bowel sounds, soft, non-tender Integumentary: normal, other (No groin hematoma) Extremities: no cyanosis, no edema, pulses normal, no ischemia or petechiae Neurologic: normal mental status, non-focal exam, pupils equal and round, CN II- XII normal, motor strength normal and Psychiatric: mood appropriate, affect normal CBC and BMP: 07/12/21 08:19 07/12/21 13:38 Abnormal lab findings: Abnormal Labs 07/08/21 07/08/21 07/09/21 19:47 19:47 00:00 WBC RBC 5.65 H Hgb 16.8 H Hct 50.7 H MCHC RDW 13.1 L Lymph % (Auto) 35.5 H [place] % (Auto) 12.1 H Lymph # (Auto) [place] # (Auto) 1.1 H Seg Neutrophils % Seg Neutrophils # Sodium 136 L Potassium 3.5 L Chloride 95.9 L Carbon Dioxide 16 L BUN 8 L Creatinine Glucose 368 H POC Glucose Hemoglobin A1c Calcium Troponin T 2.130 H* D Cholesterol 234 H LDL Cholesterol Direct 164 H HDL Cholesterol 37 L 07/09/21 07/09/21 07/09/21 04:11 05:42 10:17 WBC RBC 5.54 H Hgb 16.7 H Hct 50.8 H MCHC RDW Lymph % (Auto) 9.9 L [place] % (Auto) Lymph # (Auto) 1.1 L [place] # (Auto) Seg Neutrophils % 85.0 H Seg Neutrophils # 9.1 H Sodium 131 L Potassium 5.2 H D Chloride 93.0 L Carbon Dioxide 16 L BUN Creatinine Glucose 329 H POC Glucose 318 H Hemoglobin A1c Calcium Troponin T 3.850 H* D Cholesterol LDL Cholesterol Direct HDL Cholesterol 07/09/21 07/09/21 07/09/21 10:17 11:03 16:01 WBC RBC Hgb Hct MCHC RDW Lymph % (Auto) [place] % (Auto) Lymph # (Auto) [place] # (Auto) Seg Neutrophils % Seg Neutrophils # Sodium Potassium Chloride Carbon Dioxide BUN Creatinine Glucose POC Glucose 277 H 285 H Hemoglobin A1c 13.9 H Calcium Troponin T Cholesterol LDL Cholesterol Direct HDL Cholesterol 07/09/21 07/09/21 07/10/21 21:18 23:52 07:06 WBC RBC 5.91 H Hgb 17.7 H Hct 53.6 H MCHC RDW 13.0 L Lymph % (Auto) [place] % (Auto) Lymph # (Auto) [place] # (Auto) Seg Neutrophils % Seg Neutrophils # Sodium Potassium Chloride Carbon Dioxide BUN Creatinine Glucose POC Glucose 257 H Hemoglobin A1c Calcium Troponin T 2.280 H* D Cholesterol LDL Cholesterol Direct HDL Cholesterol 07/10/21 07/10/21 07/10/21 07:06 07:18 08:18 WBC RBC Hgb Hct MCHC RDW Lymph % (Auto) [place] % (Auto) Lymph # (Auto) [place] # (Auto) Seg Neutrophils % Seg Neutrophils # Sodium 128 L Potassium Chloride 91.2 L Carbon Dioxide 16 L BUN Creatinine Glucose 257 H POC Glucose 265 H 261 H Hemoglobin A1c Calcium Troponin T Cholesterol LDL Cholesterol Direct HDL Cholesterol 07/10/21 07/10/21 07/10/21 10:48 15:40 21:14 WBC RBC Hgb Hct MCHC RDW Lymph % (Auto) [place] % (Auto) Lymph # (Auto) [place] # (Auto) Seg Neutrophils % Seg Neutrophils # Sodium Potassium Chloride Carbon Dioxide BUN Creatinine Glucose POC Glucose 323 H 315 H 259 H Hemoglobin A1c Calcium Troponin T Cholesterol LDL Cholesterol Direct HDL Cholesterol 07/11/21 07/11/21 07/11/21 08:16 10:18 10:18 WBC RBC 5.42 H Hgb 16.8 H Hct 48.2 H MCHC 35 H RDW 13.1 L Lymph % (Auto) [place] % (Auto) Lymph # (Auto) [place] # (Auto) Seg Neutrophils % Seg Neutrophils # Sodium 129 L Potassium 3.5 L Chloride 93.1 L Carbon Dioxide 21 L BUN Creatinine Glucose 256 H POC Glucose 220 H Hemoglobin A1c Calcium 8.3 L Troponin T Cholesterol LDL Cholesterol Direct HDL Cholesterol 07/11/21 07/11/21 07/11/21 11:40 16:26 21:12 WBC RBC Hgb Hct MCHC RDW Lymph % (Auto) [place] % (Auto) Lymph # (Auto) [place] # (Auto) Seg Neutrophils % Seg Neutrophils # Sodium Potassium Chloride Carbon Dioxide BUN Creatinine Glucose POC Glucose 236 H 387 H 115 H Hemoglobin A1c Calcium Troponin T Cholesterol LDL Cholesterol Direct HDL Cholesterol 07/12/21 07/12/21 07/12/21 07:22 08:19 08:19 WBC 4.1 L RBC Hgb 16.3 H Hct 49.2 H MCHC RDW 12.7 L Lymph % (Auto) [place] % (Auto) Lymph # (Auto) [place] # (Auto) Seg Neutrophils % Seg Neutrophils # Sodium Potassium Chloride Carbon Dioxide BUN 22 H Creatinine 1.7 H D Glucose 140 H POC Glucose 147 H Hemoglobin A1c Calcium Troponin T Cholesterol LDL Cholesterol Direct HDL Cholesterol 07/12/21 13:38 WBC RBC Hgb Hct MCHC RDW Lymph % (Auto) [place] % (Auto) Lymph # (Auto) [place] # (Auto) Seg Neutrophils % Seg Neutrophils # Sodium Potassium Chloride Carbon Dioxide BUN Creatinine 1.7 H Glucose POC Glucose Hemoglobin A1c Calcium Troponin T Cholesterol LDL Cholesterol Direct HDL Cholesterol Allied health notes reviewed: nursing
--- NOTE | 2021-07-12 15:26 | Progress Note ---
Assessment and Plan This is a 45-year-old male with past medical history of HTN, HLD, morbid obesity, chronic back pain, and nicotine dependence admitted for STEMI s/p PCI with JOSE MIGUEL to the Ramus. Hospital Course to Date: 07/09: Remains stable overnight, c/o of chest soreness which patient described as "soreness but not pain. Continue PRN analgesia for pain management. On GDMT therapy per Cardio. Severe hyperglycemia this am, HgbA1c is 13.9, SSI ACHS and basal insulin was initiated. Kayexalate was also administered for hyperkalemia. Continue to trend troponin and electrolytes. Okay to transfer patient to Telemetry per cardio. 07/10: is present at bedside. Currently patient has no chest pains and denies dyspnea. However, he has a intermittent sinus tachycardia, cardiology started on IV fluid for dehydration. New onset DM with hyperglycemia, insulin is being optimized. 07/11: Discharge deferred as IV fluids started for dehydration and sinus tachycardia by cardiology today. Possible discharge tomorrow. 07/12: Cr 1.7 today, cont iv fluid, monitor renal function, consult nephrology Assessment and Plan # NIK, contrast induced ? cont iv fluid, follow renal recommendation #STEMI (ST elevation myocardial infarction) #Diastolic CHF - Presented with 10/06, constant, substernal, nonradiating, worsened with exertion, relieved with rest, associated with diaphoresis, associated with shortness of breath - Initial EKG to have lateral wall myocardial infarction - Cardiology on consult, appreciated recommendations - 07/08 s/p emergent cardiac cath- succesfull PCI with JOSE MIGUEL to the Ramus - Cardiac cath 07/08/2021- left main patent LAD patent circumflex patent ramus on a percent RCA patent moderate LV dysfunction with elevated left end-diastolic pressure. Patient has successful PCI of the ramus with a drug-eluting resolute 3.0 x 18 mm postdilated 3 5 x 12 Echo 07/08/2021-EF 20 to 25%. Mild diastolic dysfunction present impaired relaxation pattern. Right ventricle systolic function is mildly reduced - On GDMT therapy per cardio #New onset type 2 diabetes with severe hyperglycemia - Hgb A1c 13.9 Accu-Cheks reviewed poorly controlled Increase Lantus insulin to 35 units twice daily, we will also add low-dose glimepiride - per patient no prior history of DM - SSI ACH and lantus qHs initiated, optimizing the therapy - Education and resources provided on DM - Nutrition also consulted for more DM education Sinus tachycardia Likely from dehydration IV fluids started by cardiology on 07/10 -Discussed with cardiology PA and he is recommending continuation of IV fluids for 24 hours -He is aware that patient's EF is 20 to 25% -Will decrease IV fluid rate to 50 mL/h We will monitor #Hyperkelemia Improved with Kayexalate #Hyponatremia - 2/2 hyperglycemia - Ca wnr, will check mag and phosp - Monitor Na for now since patient VSS and he appear euvolemic - Continue to trend BMP - Monitor and replace electrolytes as needed #Nicotine Dependence - Thorough education of smoking cessation, patient verbalized understanding of info given - [place] cessation resources provided - Nicotine patch Qday #Hypertension Fair #Hyperlipidemia - BP is stable - Continue statin and current antihypertensive regimen - Continue blood pressure monitor per protocol - Maintain SBP less than 160 #Obesity (BMI 35.0-39.9 without comorbidity) - Balanced diet, increase physical activity at discharge - Nutrition consulted - Outpatient pulmonary follow-up for sleep study. #GI/DVT Prophylaxis - PPI- Pepcid - SCD bilateral lower extremities while in bed #Advance Care Planning - Disease education conducted, care plan discussed, diagnoses discussed, prognosis discussed. Patient acknowledges understanding and agreement with care plan Discussed with the patient, his and cardiology Disposition: Discharge deferred as IV fluids started for dehydration and sinus tachycardia by cardiology today. Possible discharge tomorrow. Subjective Date of service: 07/12/21 Principal diagnosis: STEMI Objective - Constitutional Vitals: Vital Signs - 12hr 07/12/21 07/12/21 07/12/21 04:00 06:37 08:46 Temperature 98.3 F 98.8 F Pulse Rate 92 H 97 H Pulse Rate [ 99 H From Monitor] Respiratory 20 21 Rate Blood Pressure 102/70 Blood Pressure 102/60 [Right] O2 Sat by Pulse 100 98 99 Oximetry - Labs CBC & Chem 7: 07/12/21 08:19 07/13/21 07:00 Labs: Abnormal lab results 07/11/21 07/11/21 07/12/21 Range/Units 16:26 21:12 07:22 WBC (4.5-11.0) K/mm3 Hgb (11.8-15.2) gm/dl Hct (35.5-45.6) % RDW (13.2-15.2) % BUN (9-20) mg/dL Creatinine (0.8-1.3) mg/dL Glucose (75-100) mg/dL POC Glucose 387 H 115 H 147 H (70-105) mg/dL 07/12/21 07/12/21 07/12/21 Range/Units 08:19 08:19 11:51 WBC 4.1 L (4.5-11.0) K/mm3 Hgb 16.3 H (11.8-15.2) gm/dl Hct 49.2 H (35.5-45.6) % RDW 12.7 L (13.2-15.2) % BUN 22 H (9-20) mg/dL Creatinine 1.7 H D (0.8-1.3) mg/dL Glucose 140 H (75-100) mg/dL POC Glucose 188 H (70-105) mg/dL 07/12/21 Range/Units 13:38 WBC (4.5-11.0) K/mm3 Hgb (11.8-15.2) gm/dl Hct (35.5-45.6) % RDW (13.2-15.2) % BUN (9-20) mg/dL Creatinine 1.7 H (0.8-1.3) mg/dL Glucose (75-100) mg/dL POC Glucose (70-105) mg/dL HEART Score - HEART Score Troponin: Troponin T 2.280 ng/mL (0.00-0.029) H* D 07/09/21 23:52
[2021-07-13 08:10] LABS: Blood Urea Nitrogen 9 mg/dL (9-20); Calcium 8.6 mg/dL (8.4-10.2); Hemolysis Index 169
[2021-07-13 08:13] LABS: BUN/Creatinine Ratio 13
[2021-07-13 08:44] VITALS: BP 110/73
--- NOTE | 2021-07-13 10:23 | Progress Note ---
Assessment and Plan 45-year-old male with morbid obesity, chronic back pain, smoker, hypertension, hyperlipidemia admitted overnight for STEMI. PCI with JOSE MIGUEL to ramus. STEMI- s/p pci with JOSE MIGUEL to Ramus acute diastolic and systolic heart failure acute renal failure resolved with iv fluids Hyponatremia Hyperlipidemia Hypertension Cardiomyopathy Obesity Cardiac cath 07/08/2021- left main patent LAD patent circumflex patent ramus on a percent RCA patent moderate LV dysfunction with elevated left end-diastolic pressure. Patient has successful PCI of the ramus with a drug-eluting resolute 3.0 x 18 mm postdilated 3 5 x 12 Echo 07/08/2021-EF 20 to 25%. Mild diastolic dysfunction present impaired relaxation pattern. Right ventricle systolic function is mildly reduced rec: Patient is renal function has resolved continue dual antiplatelet therapy high-dose statin Coreg and losartan. Patient will follow up in the cardiology clinic in 1 week's time. Patient is ambulating without issue. Discussed about fluid restriction salt restriction. And smoking cessation may be discharged from a cardiovascular point of view - Patient Problems (1) Acute diastolic (congestive) heart failure Current Visit: Yes Status: Acute (2) Hyperlipemia, mixed Current Visit: Yes Status: Chronic (3) Hypertension Current Visit: Yes Status: Chronic Qualifiers: Hypertension type: primary hypertension Qualified Code(s): I10 - Essential (primary) hypertension (4) Cardiomyopathy Current Visit: Yes Status: Acute Qualifiers: Cardiomyopathy type: ischemic Qualified Code(s): I25.5 - Ischemic cardiomyopathy (5) Obesity (BMI 35.0-39.9 without comorbidity) Current Visit: Yes Status: Chronic (6) STEMI (ST elevation myocardial infarction) Current Visit: Yes Status: Acute Qualifiers: Involved coronary artery: other coronary artery Qualified Code(s): I21.29 - ST elevation (STEMI) myocardial infarction involving other sites (7) Acute lateral myocardial infarction Current Visit: No Status: Inactive Subjective Date of service: 07/13/21 Principal diagnosis: STEMI Interval history: walking in the halls no chest pain or sob Objective Vital Signs Temp Pulse Resp BP BP Pulse Ox 07/13/21 08:42 98.6 F 86 18 110/73 99 07/13/21 04:45 98.6 F 78 18 105/75 100 07/13/21 00:00 98 F 78 19 115/79 100 07/12/21 21:05 99.6 F 87 18 108/72 100 04/15/22 20:59 98 07/12/21 16:28 97.7 F 80 109/76 100 - Physical Examination General: Appears Well, No Apparent Distress HEENT: Positive: Normocephaly, Mucus Membranes Moist Neck: Positive: trachea midline Cardiac: Positive: Reg Rate and Rhythm Lungs: Positive: clear to auscultation Neuro: Positive: Grossly Intact Abdomen: Positive: Soft, Active Bowel Sounds. Negative: Tender, Distended Skin: Positive: Clear Incision: Cardiac Cath Site (No hematomas; R fem dressing, clean, dry, intact ) Musculoskeletal: No Pain, Normal Range of Motion Extremities: Present: normal. Absent: edema - Labs and Meds CBC 07/12/21 Range/Units 08:19 WBC 4.1 L (4.5-11.0) K/mm3 RBC 3.71 (3.65-5.03) M/mm3 Hgb 16.3 H (11.8-15.2) gm/dl Hct 49.2 H (35.5-45.6) % Plt Count 226 (140-440) K/mm3 Comprehensive Metabolic Panel 07/12/21 07/13/21 Range/Units 13:38 07:00 Sodium 134 L (137-145) mmol/L Potassium 4.0 (3.6-5.0) mmol/L Chloride 99.9 (98-107) mmol/L Carbon Dioxide 22 (22-30) mmol/L BUN 9 (9-20) mg/dL Creatinine 1.7 H 0.7 L D (0.8-1.3) mg/dL Glucose 203 H (75-100) mg/dL Calcium 8.6 (8.4-10.2) mg/dL - Imaging and Cardiology Echo: report reviewed Cardiac cath: report reviewed (left main patent LAD patent circumflex patent ramus on a percent RCA patent moderate LV dysfunction with elevated left end- diastolic pressure. Patient has successful PCI of the ramus with a drug-eluting resolute 3.0 x 18 mm postdilated 3 5 x 12) - Telemetry EKG Rhythm: Sinus Rhythm - EKG Sinus rhythms and dysrhythmias: sinus rhythm Myocardial infarction: lateral MS (acute or rece - Allied health notes Allied health notes reviewed: nursing
[2021-07-13] MEDS: CLOPIDOGREL 75 MG TAB PO SCH (10:45)
[2021-07-13] MEDS: ASPIRIN 81 MG TAB CHEW PO SCH (10:45)
[2021-07-13] MEDS: GLIMEPIRIDE 2 MG TAB PO SCH (10:45)
[2021-07-13] MEDS: FAMOTIDINE 20 MG TAB PO SCH (10:46)
[2021-07-13] MEDS: INSULIN GLARGINE 100 UNITS/ML SUB-Q SCH (10:46)
[2021-07-13] MEDS: METOPROLOL TARTRATE 50 MG TAB PO SCH (10:46)
[2021-07-13] MEDS: NICOTINE 21 MG/24 HR PATCH TD SCH (10:47)
[2021-07-13] MEDS: LOSARTAN 25 MG TAB PO SCH (10:48)
[2021-07-13] MEDS: INSULIN LISPRO 100 UNIT/ML SUB-Q SCH ×2 (10:48→12:52)
--- NOTE | 2021-07-13 12:39 | Consultation ---
History of Present Illness - Reason for Consult Consult date: 07/13/21 acute renal failure - History of Present Illness The patient is a 45 YO male with history of Morbid Obesity, DM, HLD and Nicotine Dependence who presented to [facility] ED 07/08/2021 with sudden onset of chest pain. The pain was 7/10, constant, substernal, nonradiating, worsened with exertion, associated with diaphoresis and sob. EKG revealed evidence of STEMI. Patient initiated on heparin drip and antiplatelet therapy. Cardiology team consulted in ED and patient taken urgently to [facility] and s/p pci with JOSE MIGUEL to [facility]. Patient was admitted to ICU with STEMI and acute diastolic and systolic heart failure. Patient currently denies any fever, chills, cough, skin rash, N, V, D, abd pain dysuria or hematuria. Labs notable for Creat 1.7. Nephrology was consulted for further evaluation of NIK. Past History Past Medical History: hypertension, hyperlipidemia, other (See HPI) Past Surgical History: No surgical history, Other (Reviewed) Social history: single, smoking. denies: alcohol abuse Family history: diabetes (Welcome back), hypertension Medications and Allergies Allergies Allergy/AdvReac Type Severity Reaction Status Date / Time No Known Allergies Allergy Verified 07/09/21 05:11 Home Medications Medication Instructions Recorded Confirmed Last Taken Type Aspirin [Aspirin BABY CHEW TAB] 81 mg PO QDAY #30 tab.chew 07/13/21 Unknown Rx AtorvaSTATin [Lipitor] 80 mg PO QHS #30 tablet 07/13/21 Unknown Rx Clopidogrel [Plavix] 75 mg PO QDAY #30 tablet 07/13/21 Unknown Rx Famotidine [Pepcid] 20 mg PO QDAY #30 tablet 07/13/21 Unknown Rx Glimepiride [Amaryl] 1 mg PO QDDIAB #60 tablet 07/13/21 Unknown Rx Insulin Glargine [Lantus VIAL] 35 units SUB-Q BID 30 Days 07/13/21 Unknown Rx Lispro Insulin [HumaLOG] 0 unit SUB-Q ACHS 30 Days units 07/13/21 Unknown Rx Losartan [Cozaar] 25 mg PO QDAY #30 tablet 07/13/21 Unknown Rx Metoprolol [Lopressor TAB] 50 mg PO BID #60 tablet 07/13/21 Unknown Rx Active Meds: Active Medications Acetaminophen (Acetaminophen 325 Mg Tab) 650 mg PO Q6H PRN PRN Reason: Pain MILD(1-3)/Fever >100.5/LI Aspirin (Aspirin 81 Mg Tab Chew) 81 mg PO QDAY [facility] Last Admin: 07/13/21 10:45 Dose: 81 mg Atorvastatin Calcium (Atorvastatin 40 Mg Tab) 80 mg PO QHS [facility] Last Admin: 07/12/21 21:25 Dose: 80 mg Clopidogrel Bisulfate (Clopidogrel 75 Mg Tab) 75 mg PO QDAY [facility] Last Admin: 07/13/21 10:45 Dose: 75 mg Dextrose (Dextrose 50% In Water (25gm) 50 Ml Syringe) 50 ml IV Q30MIN PRN; Protocol PRN Reason: Hypoglycemia Famotidine (Famotidine 20 Mg Tab) 20 mg PO QDAY [facility] Last Admin: 07/13/21 10:46 Dose: 20 mg Glimepiride (Glimepiride 2 Mg Tab) 1 mg PO QDDIAB [facility] Last Admin: 07/13/21 10:45 Dose: 1 mg Sodium Chloride (Nacl 0.45% 1000 Ml) 1,000 mls @ 50 mls/hr IV DIRECT [facility] Last Admin: 07/12/21 09:57 Dose: 50 mls/hr Insulin Glargine (Insulin Glargine 100 Units/Ml) 35 units SUB-Q BID [facility] Last Admin: 07/13/21 10:46 Dose: 35 units Insulin Human Lispro (Insulin Lispro 100 Unit/Ml) 0 unit SUB-Q ACHS [facility]; Protocol Last Admin: 07/13/21 10:48 Dose: 3 unit Losartan Potassium (Losartan 25 Mg Tab) 25 mg PO QDAY [facility] Last Admin: 07/13/21 10:48 Dose: 25 mg Metoprolol Tartrate (Metoprolol Tartrate 50 Mg Tab) 50 mg PO BID [facility] Last Admin: 07/13/21 10:46 Dose: 50 mg Morphine Sulfate (Morphine 4 Mg/1 Ml Inj) 2 mg IV Q4H PRN PRN Reason: Pain , Severe (7-10) Last Admin: 07/09/21 09:57 Dose: 2 mg Nicotine (Nicotine 21 Mg/24 Hr Patch) 21 mg TD QDAY [facility] Last Admin: 07/13/21 10:47 Dose: Not Given Oxycodone/Acetaminophen (Oxycodone /Acetaminophen 5-325mg Tab) 1 tab PO Q6H PRN PRN Reason: Pain, Moderate (4-6) Last Admin: 07/08/21 22:23 Dose: 1 tab Sodium Chloride (Sodium Chloride 0.9% 10 Ml Flush Syringe) 10 ml IV BID [facility] Last Admin: 07/13/21 10:48 Dose: 10 ml Sodium Chloride (Sodium Chloride 0.9% 10 Ml Flush Syringe) 10 ml IV PRN PRN PRN Reason: LINE FLUSH Review of Systems All systems: negative Exam - Vital Signs Vital signs: Vital Signs Temp Pulse Resp BP Pulse Ox 98.9 F 112 H 26 H 160/110 100 07/08/21 19:30 07/08/21 19:30 07/08/21 19:30 07/08/21 19:30 07/08/21 19:30 Results - Lab Results 07/12/21 08:19 07/13/21 07:00 Most recent lab results Calcium 8.6 mg/dL (8.4-10.2) 07/13/21 07:00 Phosphorus 2.80 mg/dL (2.5-4.5) 07/10/21 07:06 Magnesium 1.80 mg/dL (1.7-2.3) 07/10/21 07:06 Assessment and Plan 1. Acute kidney injury: Juwan vasomotor Acute kidney injury. Monitor renal function. Creatinine level is better. Avoid nephrotoxic agents. Meds dosage based on GFR. 2. FEN: Hyponatremia, Sodium level is better. Replete lytes. Monitor lytes and volume status. 3. STEMI: S/p JOSE MIGUEL. Followed by Cards. 4. Acute diastolic and systolic CHF, POA: Followed by Cards. 5. DM-2: Monitor. Subjective: Patient was seen and examined at the bedside. Examination: General appearance: well-developed, appears stated age, obese, no distress HEENT: atraumatic, pupils reacting to light Neck: trachea midline Respiratory: ctab Heart: S1S2, regular, no murmur Abdomen: soft, bowel sounds heard, NT Integumentary: no obvious rash Neurologic: AO, able to move extremities Ext: no edema noted
--- NOTE | 2021-07-13 13:49 | Discharge Summary ---
Providers - Providers Date of Admission: 07/08/21 20:00 Date of discharge: 07/13/21 Attending physician: DUANE MARTÍNEZ 07/08/21 Consult to Cardiac Rehabilitation [CONS] Routine Reason For Exam: Phase 1 Consult to Cardiac Rehabilitation [CONS] Routine Reason For Exam: post pci 07/08/21 20:00 Consult to Cardiology [CONS] Routine Consulting Provider: MALI ERICKSON Reason For Exam: stemi 07/09/21 12:08 Consult to Dietitian/Nutrition [CONS] Routine Physician Instructions: Reason For Exam: New onset Diabetes Reason for Consult: Diet education 07/09/21 17:18 Consult to Physician [CONS] Routine Comment: noted/ gissel Consulting Provider: VALENCIA CARL Physician Instructions: Reason For Exam: STEMI 07/12/21 10:05 Consult to Physician [CONS] Routine Comment: Consulting Provider: MOISES DEL ROSARIO Physician Instructions: Reason For Exam: nik Primary care physician: PAINTER SKI EDGE Hospitalization Condition: Critical Disposition: 30 STILL A PATIENT Final Discharge Diagnosis (Prints w/discharge instructions): #STEMI (ST elevation myocardial infarction). #Diastolic CHF. # NIK, contrast induced ? resolved. #New onset type 2 diabetes with severe hyperglycemia. #Sinus tachycardia. #Hyperkelemia. #Hyponatremia. #Nicotine Dependence. #Hypertension. #Hyperlipidemia. #Obesity (BMI 35.0-39.9 without comorbidity) Time spent for discharge: 34 minutes Exam - Constitutional Vitals: Temp Pulse Resp BP Pulse Ox 98.6 F 86 18 110/73 98 07/13/21 08:42 07/13/21 08:42 07/13/21 08:42 07/13/21 08:42 07/13/21 10:00 Plan Activity: advance as tolerated Weight Bearing Status: Non-Weight Bearing Diet: low fat, low salt Follow up with: PRIMARY CARE, [Primary Care Provider] - 7 Days MALI ERICKSON MD [Staff Physician] - 7 Days Prescriptions: AtorvaSTATin [Lipitor] 80 mg PO QHS #30 tablet Glimepiride [Amaryl] 1 mg PO QDDIAB #60 tablet Aspirin [Aspirin BABY CHEW TAB] 81 mg PO QDAY #30 tab.chew Losartan [Cozaar] 25 mg PO QDAY #30 tablet Lispro Insulin [HumaLOG] 0 unit SUB-Q ACHS 30 Days units Insulin Glargine [Lantus VIAL] 35 units SUB-Q BID 30 Days Metoprolol [Lopressor TAB] 50 mg PO BID #60 tablet Famotidine [Pepcid] 20 mg PO QDAY #30 tablet Clopidogrel [Plavix] 75 mg PO QDAY #30 tablet
--- NOTE | 2021-07-13 14:05 | Progress Note ---
Subjective Date of service: 07/13/21 Principal diagnosis: STEMI Objective Vital Signs - 12hr 07/13/21 07/13/21 07/13/21 04:45 08:42 10:00 Temperature 98.6 F 98.6 F Pulse Rate 78 86 Respiratory 18 18 Rate Blood Pressure 105/75 110/73 O2 Sat by Pulse 100 99 98 Oximetry Constitutional: no acute distress, alert, other (Morbidly Obese.) Eyes: non-icteric ENT: oropharynx moist, other (large neck) Neck: supple, no lymphadenopathy, no JVD Effort: normal Ascultation: Bilateral: clear, diminished breath sounds Cardiovascular: regular rate and rhythm, other (S1,S2) Gastrointestinal: normoactive bowel sounds, soft, non-tender Integumentary: normal, other (No groin hematoma) Extremities: no cyanosis, no edema, pulses normal, no ischemia or petechiae Neurologic: normal mental status, non-focal exam, pupils equal and round, CN II- XII normal, motor strength normal and Psychiatric: mood appropriate, affect normal CBC and BMP: 07/12/21 08:19 07/13/21 07:00 Abnormal lab findings: Abnormal Labs 07/08/21 07/08/21 07/09/21 19:47 19:47 00:00 WBC RBC 5.65 H Hgb 16.8 H Hct 50.7 H MCHC RDW 13.1 L Lymph % (Auto) 35.5 H [place] % (Auto) 12.1 H Lymph # (Auto) [place] # (Auto) 1.1 H Seg Neutrophils % Seg Neutrophils # Sodium 136 L Potassium 3.5 L Chloride 95.9 L Carbon Dioxide 16 L BUN 8 L Creatinine Glucose 368 H POC Glucose Hemoglobin A1c Calcium Troponin T 2.130 H* D Cholesterol 234 H LDL Cholesterol Direct 164 H HDL Cholesterol 37 L 07/09/21 07/09/21 07/09/21 04:11 05:42 10:17 WBC RBC 5.54 H Hgb 16.7 H Hct 50.8 H MCHC RDW Lymph % (Auto) 9.9 L [place] % (Auto) Lymph # (Auto) 1.1 L [place] # (Auto) Seg Neutrophils % 85.0 H Seg Neutrophils # 9.1 H Sodium 131 L Potassium 5.2 H D Chloride 93.0 L Carbon Dioxide 16 L BUN Creatinine Glucose 329 H POC Glucose 318 H Hemoglobin A1c Calcium Troponin T 3.850 H* D Cholesterol LDL Cholesterol Direct HDL Cholesterol 07/09/21 07/09/21 07/09/21 10:17 11:03 16:01 WBC RBC Hgb Hct MCHC RDW Lymph % (Auto) [place] % (Auto) Lymph # (Auto) [place] # (Auto) Seg Neutrophils % Seg Neutrophils # Sodium Potassium Chloride Carbon Dioxide BUN Creatinine Glucose POC Glucose 277 H 285 H Hemoglobin A1c 13.9 H Calcium Troponin T Cholesterol LDL Cholesterol Direct HDL Cholesterol 07/09/21 07/09/21 07/10/21 21:18 23:52 07:06 WBC RBC 5.91 H Hgb 17.7 H Hct 53.6 H MCHC RDW 13.0 L Lymph % (Auto) [place] % (Auto) Lymph # (Auto) [place] # (Auto) Seg Neutrophils % Seg Neutrophils # Sodium Potassium Chloride Carbon Dioxide BUN Creatinine Glucose POC Glucose 257 H Hemoglobin A1c Calcium Troponin T 2.280 H* D Cholesterol LDL Cholesterol Direct HDL Cholesterol 07/10/21 07/10/21 07/10/21 07:06 07:18 08:18 WBC RBC Hgb Hct MCHC RDW Lymph % (Auto) [place] % (Auto) Lymph # (Auto) [place] # (Auto) Seg Neutrophils % Seg Neutrophils # Sodium 128 L Potassium Chloride 91.2 L Carbon Dioxide 16 L BUN Creatinine Glucose 257 H POC Glucose 265 H 261 H Hemoglobin A1c Calcium Troponin T Cholesterol LDL Cholesterol Direct HDL Cholesterol 07/10/21 07/10/21 07/10/21 10:48 15:40 21:14 WBC RBC Hgb Hct MCHC RDW Lymph % (Auto) [place] % (Auto) Lymph # (Auto) [place] # (Auto) Seg Neutrophils % Seg Neutrophils # Sodium Potassium Chloride Carbon Dioxide BUN Creatinine Glucose POC Glucose 323 H 315 H 259 H Hemoglobin A1c Calcium Troponin T Cholesterol LDL Cholesterol Direct HDL Cholesterol 07/11/21 07/11/21 07/11/21 08:16 10:18 10:18 WBC RBC 5.42 H Hgb 16.8 H Hct 48.2 H MCHC 35 H RDW 13.1 L Lymph % (Auto) [place] % (Auto) Lymph # (Auto) [place] # (Auto) Seg Neutrophils % Seg Neutrophils # Sodium 129 L Potassium 3.5 L Chloride 93.1 L Carbon Dioxide 21 L BUN Creatinine Glucose 256 H POC Glucose 220 H Hemoglobin A1c Calcium 8.3 L Troponin T Cholesterol LDL Cholesterol Direct HDL Cholesterol 07/11/21 07/11/21 07/11/21 11:40 16:26 21:12 WBC RBC Hgb Hct MCHC RDW Lymph % (Auto) [place] % (Auto) Lymph # (Auto) [place] # (Auto) Seg Neutrophils % Seg Neutrophils # Sodium Potassium Chloride Carbon Dioxide BUN Creatinine Glucose POC Glucose 236 H 387 H 115 H Hemoglobin A1c Calcium Troponin T Cholesterol LDL Cholesterol Direct HDL Cholesterol 07/12/21 07/12/21 07/12/21 07:22 08:19 08:19 WBC 4.1 L RBC Hgb 16.3 H Hct 49.2 H MCHC RDW 12.7 L Lymph % (Auto) [place] % (Auto) Lymph # (Auto) [place] # (Auto) Seg Neutrophils % Seg Neutrophils # Sodium Potassium Chloride Carbon Dioxide BUN 22 H Creatinine 1.7 H D Glucose 140 H POC Glucose 147 H Hemoglobin A1c Calcium Troponin T Cholesterol LDL Cholesterol Direct HDL Cholesterol 07/12/21 07/12/21 07/12/21 11:51 13:38 15:50 WBC RBC Hgb Hct MCHC RDW Lymph % (Auto) [place] % (Auto) Lymph # (Auto) [place] # (Auto) Seg Neutrophils % Seg Neutrophils # Sodium Potassium Chloride Carbon Dioxide BUN Creatinine 1.7 H Glucose POC Glucose 188 H 191 H Hemoglobin A1c Calcium Troponin T Cholesterol LDL Cholesterol Direct HDL Cholesterol 07/12/21 07/13/21 07/13/21 21:06 07:00 08:41 WBC RBC Hgb Hct MCHC RDW Lymph % (Auto) [place] % (Auto) Lymph # (Auto) [place] # (Auto) Seg Neutrophils % Seg Neutrophils # Sodium 134 L Potassium Chloride Carbon Dioxide BUN Creatinine 0.7 L D Glucose 203 H POC Glucose 194 H 187 H Hemoglobin A1c Calcium Troponin T Cholesterol LDL Cholesterol Direct HDL Cholesterol Allied health notes reviewed: nursing
== END 2021-07-13 14:50 | disposition home or self-care (01) | DRG 246 ==
LOC: ED 19:24 → CC1 20:00 → 4A 07-09 22:00
PROVIDERS: ADMIT Internal Medicine; ATTEND Internal Medicine
PROC: 027034Z Dilation of Coronary Artery, One Artery with Drug-eluting Intraluminal Device, Percutaneous Approach (ICD-10-PCS; principal; 2021-07-08)
PROC: 02C03ZZ Extirpation of Matter from Coronary Artery, One Artery, Percutaneous Approach (ICD-10-PCS; 2021-07-08)
PROC: 4A023N7 Measurement of Cardiac Sampling and Pressure, Left Heart, Percutaneous Approach (ICD-10-PCS; 2021-07-08)
PROC: B2111ZZ Fluoroscopy of Multiple Coronary Arteries using Low Osmolar Contrast (ICD-10-PCS; 2021-07-08)
PROC: B240ZZ3 Ultrasonography of Single Coronary Artery, Intravascular (ICD-10-PCS; 2021-07-08)
DX: I21.29 ST elevation (STEMI) myocardial infarction involving other sites (principal); I50.41 Acute combined systolic (congestive) and diastolic (congestive) heart failure; E87.1 Hypo-osmolality and hyponatremia; E87.0 Hyperosmolality and hypernatremia; I20.0 Unstable angina; I25.5 Ischemic cardiomyopathy; E78.2 Mixed hyperlipidemia; E11.65 Type 2 diabetes mellitus with hyperglycemia; E87.5 Hyperkalemia; I11.0 Hypertensive heart disease with heart failure; F17.210 Nicotine dependence, cigarettes, uncomplicated; E66.01 Morbid (severe) obesity due to excess calories; G89.29 Other chronic pain; Z83.3 Family history of diabetes mellitus; Z82.49 Family history of ischemic heart disease and other diseases of the circulatory system; Z79.899 Other long term (current) drug therapy; Z91.14 Patient's other noncompliance with medication regimen; Z71.6 Tobacco abuse counseling; Z68.39 Body mass index [BMI] 39.0-39.9, adult
CPT/HCPCS: 36415; 71045; 80048; 80053; 80061; 82565; 82962; 83036; 83735; 83880; 84100; 84484; 85025; 85027; 92941; 92978; 93005; 93306; 93458; 94760; G0378; J1815; J3490; Q0162; Q9967; C1725; C1753; C1757; C1769; C1874; C1887; C1894; C8929; C9606; J1644; J2250; J2270; J2405; J3010; J3246; J7030